=== PATIENT | female | born 1965 | race Caucasian/White ===

== ENCOUNTER 2016-11-25 21:15 | Inpatient (IN) ==
[2016-11-25] MEDS ORDERED: 0.9 % Sodium Chloride 500 ML IVC ONE (21:35)
[2016-11-25] MEDS ORDERED: 0.9 % Sodium Chloride 1,000 ML IVC ONE (21:36)
--- NOTE | 2016-11-25 21:40 | Emergency Department Note ---
Disposition Clinical Impression: Numbness and tingling of right upper extremity, Hyperglycemia, Hyponatremia, Hypermagnesemia UTI (urinary tract infection) Qualifiers: Urinary tract infection type: site unspecified Hematuria presence: without hematuria Qualified Code(s): N39.0 - Urinary tract infection, site not specified Disposition: Admitted As Inpatient Condition: Fair Referrals: Zeynep Gonsales MD [Primary Care Provider] - Forms: ED Satisfaction Letter Time of Disposition: 23:40 Neuro HPI - General Chief Complaint: ED Neuro Symptoms/Deficit Stated Complaint: tingling R side face/arm Time Seen by Provider: 11/25/16 21:36 Source: patient Limitations: no limitations Nursing Notes Reviewed: Yes Vital Signs Reviewed: Yes - History of Present Illness HPI Narrative: 51-year-old female with poorly controlled diabetes, insulin-dependent but not taking insulin for the last several weeks due to not able to afford her medications, also hypertension hyperlipidemia, presents with acute onset of right facial and right upper extremity numbness and tingling. Patient stated that she started having these paresthesias at approximately 6:00 in the evening or 1800. She woke up with symptoms, once a bed at 1600. She no history of CVA. No history of [place], she denies any active chest pain. Denies fever chills cough congestion. Symptom Onset Unknown: Yes Location: right face, right arm History of same: Yes Severity: mild Symptoms Improving: Yes Improves with: time Worsens with: none On Anticoagulants: No Associated symptoms: Denies: confusion, chest pain, cough, diaphoresis, headaches, nausea/vomiting, shortness of breath, syncope - Related Data Home Medications: Home Medications Medication Instructions Recorded Confirmed Bethanechol Chloride [Urecholine] 10 mg PO TID 05/10/15 05/10/15 Cyanocobalamin/Folic Acid [B-12 1 each SL DAILY 05/10/15 05/10/15 1,000 Mcg Sub Tablet] Docusate Sodium [Dok] 100 mg PO BID 05/10/15 05/10/15 Duloxetine HCl [Cymbalta] 60 mg PO DAILY 05/10/15 05/10/15 Fluocinonide/Emollient Base 15 gm TP DAILY 05/10/15 05/10/15 [Fluocinonide-E 0.05% Cream] Gabapentin [Gralise] 1,200 mg PO HS 05/10/15 05/10/15 Gabapentin [Neurontin] 600 mg PO BID 05/10/15 05/10/15 Insulin ASPART [Novolog Flexpen] 15 unit SQ TID 05/10/15 05/10/15 Insulin Glargine,Hum.rec.anlog 76 unit SQ DAILY 05/10/15 05/10/15 [Lantus Solostar] Ketoconazole 2% CRM [Nizoral Cream] 1 appl TP DAILY 05/10/15 05/10/15 Losartan Potassium [Cozaar] 50 mg PO DAILY 05/10/15 05/10/15 Lovastatin 10 mg PO DAILY 05/10/15 05/10/15 Metformin HCl [Metformin HCl ER] 2,000 mg PO DAILY 05/10/15 05/10/15 Ondansetron HCl [Zofran] 4 mg PO TID PRN 05/10/15 05/10/15 Oxycodone HCl/Acetaminophen 1 tab PO Q6H PRN 05/10/15 05/10/15 [Percocet 10-325 mg Tablet] Pantoprazole Sodium [Protonix] 40 mg PO DAILY 05/10/15 05/10/15 Ranitidine HCl [Zantac] 150 mg PO BID 05/10/15 05/10/15 Tizanidine HCl [Zanaflex] 4 mg PO TID PRN 05/10/15 05/10/15 hydroCHLOROthiazide 12.5 mg PO DAILY 05/10/15 05/10/15 [Hydrochlorothiazide] Allergies/Adverse Reactions: Allergies Allergy/AdvReac Type Severity Reaction Status Date / Time hydrocodone [From Vicodin] AdvReac Nausea Verified 11/25/16 21:22 All systems ED: reviewed and negative except as stated. Review of Systems: As Per HPI Constitutional: Denies: fever, chills, weakness Eyes: Denies: eye pain ENT ED: Denies: ear pain, congestion Cardiovascular: Denies: chest pain Respiratory: Denies: cough, dyspnea Gastrointestinal: Denies: abdominal pain, nausea Genitourinary: Reports: as per HPI, frequency. Denies: urgency Musculoskeletal: Denies: back pain, neck pain Integumentary: Denies: rash Neurological: Reports: as per HPI, numbness, paresthesias. Denies: headache, abnormal gait Psychiatric: Denies: anxiety Past Medical History - Past Medical History Attestation: Yes The following information was validated with the patient. Source: patient Medical history: Reports: diabetes, GERD, hyperlipidemia, hypertension, kidney stones, other Psychiatric history: Reports: depression - Social History Smoking Status: Never smoker Smokeless Tobacco Status: No Alcohol use: Reports: none Drug use: Reports: none Physical Exam - General Limitations: no limitations General appearance: alert, in no apparent distress - Head Head exam: atraumatic - Eye Eye exam: Present: normal appearance, PERRL - ENT ENT exam: normal exam, normal oropharynx - Neck Neck exam: Present: normal inspection, full ROM - Chest Chest inspection: Present: normal inspection, symmetric chest wall rise - Respiratory Respiratory exam: Present: normal lung sounds bilaterally. Absent: respiratory distress - Cardiovascular Cardiovascular exam: Present: regular rate, normal rhythm - Abdominal Exam Abdominal exam: Present: soft, Non-Tender - Extremities Exam Extremities exam: Present: normal inspection, full ROM - Expanded Lower Extremity Exam Knee exam: Present: tenderness (bilateral no erythema). Absent: swelling, erythema - Neurological Exam Neurological exam: Present: alert, oriented X3, CN II-XII intact, normal gait - Expanded Neurological Exam Patient oriented to: Present: person, place, time Speech: Present: fluid speech Cranial nerves: facial sensation (V): Abnormal Right Cerebellar function: finger to nose: Normal, heel to [place]: Normal Cerebellar function: normal gait Motor strength - LUE: 5/5 Motor strength - RUE: 5/5 Motor strength - LLE: 5/5 Motor strength - RLE: 5/5 Sensory exam upper extremity: light touch: Abnormal Right Coma Scale Eye Opening: Spontaneous Coma Scale Motor Response: Obeys Commands Coma Scale Verbal Response: Oriented Coma Scale Total: 15 Course Course Narrative: 51-year-old female with acute onset right facial and upper summary numbness, given that she has diabetes and concern for anginal versus neurologic effects. Patient also has poorly controlled hyperglycemia which may be precipitating her symptoms, given that the last normal was at 1600, and she woke up with symptoms , she is out of the window for TPA and her symptoms are very small with an NIH of 1 she only has sensory deficits, and she also some numbness on the left montgomery which may be neuropathy but she states that this is new. Her symptoms do not fit a typical stroke pattern, we will get a stat CT scan but no stroke alert at this time, also checking beta hydroxybutyric acid, labs including urine blood cultures lactate and IV fluids - Reevaluation(s) Reevaluation #1: CT scan negative except for sphenoid sinusitis, patient has evidence of UTI, VBG shows no acidemia, but I did speak with the hospitalist they will admit the patient they recommended a insulin drip for the patient given uncontrolled hyperglycemia concern for DKA and neurologic symptoms. Plan admit the patient to the [facility] in stable condition. Time: 23:40 Vital Signs Temperature 97.9 F 11/25/16 21:18 Pulse Rate 99 11/25/16 21:18 Respiratory Rate 20 11/25/16 21:18 Blood Pressure 160/93 11/25/16 21:18 O2 Sat by Pulse Oximetry 98 11/25/16 21:18 Temperature 97.9 F 11/25/16 21:18 Pulse Rate 99 11/25/16 21:18 Respiratory Rate 20 11/25/16 21:18 Blood Pressure 160/93 11/25/16 21:18 O2 Sat by Pulse Oximetry 98 11/25/16 21:18 Oxygen Delivery Oxygen Delivery Room Air Neuro Symptoms/Deficit - Differential Diagnosis Likely: transient cerebral ischemia, convulsions - Medical Records Medical records reviewed: Yes I reviewed the patient's medical records. - Lab Data Lab results reviewed: Yes I reviewed the patient's lab results. Result diagrams: 11/25/16 22:28 11/25/16 22:57 Lab Results 11/25/16 11/25/16 11/25/16 Range/Units 21:23 21:24 22:14 WBC (4.3-11.1) K/mcL RBC (3.82-4.97) M/mcL Hgb (11.5-15.4) g/dL Hct (35.3-44.9) % MCV (83.0-100.0) fL MCH (28.0-33.3) pg MCHC (31.6-35.5) g/dL RDW (11.5-14.5) % Plt Count (140-400) K/mcL MPV (9.4-12.4) fL Immature Gran % (0-4) % Seg Neutrophils % % Lymphocytes % % Monocytes % % Eosinophils % % Basophils % % Neutrophils # (1.6-8.9) K/mcL Lymphocytes # (0.6-4.6) K/mcL Monocytes # (0.0-1.3) K/mcL Eosinophils # (0.0-0.6) K/mcL Basophils # (0.0-0.2) K/mcL PT (9.4-12.1) Seconds INR APTT (26.0-36.0) Seconds VBG pH (7.32-7.42) pH Units VBG pCO2 (41-51) mmHg VBG pO2 (25-50) mmHg VBG HCO3 (21-27) mEq/L Sodium (136-145) mEq/L Potassium (3.5-4.5) mEq/L Chloride (98-109) mEq/L Carbon Dioxide (19-29) mEq/L BUN (7-20) mg/dL Creatinine (0.57-1.11) mg/dL Est GFR ( Amer) (> 60) Est GFR (Non-Af Amer) (> 60) BUN/Creatinine Ratio (6-26) Glucose (70-99) mg/dL POC Glucose 461 H* 426 H* (58-89) Calculated Osmolality (280-300) Lactic Acid (0.5-2.2) mmol/L Calcium (8.6-10.8) mg/dL Phosphorus (2.3-4.7) mg/dL Magnesium (1.6-2.6) mg/dL Troponin I (0-0.03) ng/mL Beta-Hydroxybutyric Acd (0.02-0.27) mmol/L TSH (0.350-4.840) mcIU/mL Urine Color Yellow (Yellow) Urine Clarity Clear (Clear) Urine pH 5.5 (5.0-8.0) pH Units Ur Specific [place] > 1.030 H (1.010-1.025) Urine Protein 30 H (Neg-Trace) mg/dL Urine Glucose (UA) >=1000 H (Normal) mg/dL Urine Ketones 15 H (Negative) mg/dL Urine Blood Large H (Negative) Urine Nitrite Positive A (Negative) Urine Bilirubin Negative (Negative) Urine Urobilinogen Normal (Normal) mg/dL Ur Leukocyte Esterase Negative (Negative) Urine Microscopic RBC 50-100 H (0-3) per hpf Urine Microscopic WBC 5-15 H (0-3) per hpf Ur Squamous Epith Cells Moderate H (None-Few) per lpf Urine Bacteria Many H (None-Few) per hpf Hyaline Casts None Seen (None-Few) per lpf Ur Culture Indicated? YES A (NO) Specimen Rejected 11/25/16 11/25/16 11/25/16 Range/Units 22:28 22:28 22:28 WBC 7.4 (4.3-11.1) K/mcL RBC 4.30 (3.82-4.97) M/mcL Hgb 13.8 (11.5-15.4) g/dL Hct 38.1 (35.3-44.9) % MCV 88.6 (83.0-100.0) fL MCH 32.1 (28.0-33.3) pg MCHC 36.2 H (31.6-35.5) g/dL RDW 13.5 (11.5-14.5) % Plt Count 275 (140-400) K/mcL MPV 11.3 (9.4-12.4) fL Immature Gran % 0.3 (0-4) % Seg Neutrophils % 63.6 % Lymphocytes % 26.8 % Monocytes % 6.8 % Eosinophils % 1.6 % Basophils % 0.9 % Neutrophils # 4.7 (1.6-8.9) K/mcL Lymphocytes # 2.0 (0.6-4.6) K/mcL Monocytes # 0.5 (0.0-1.3) K/mcL Eosinophils # 0.1 (0.0-0.6) K/mcL Basophils # 0.1 (0.0-0.2) K/mcL PT 11.1 (9.4-12.1) Seconds INR 1.0 APTT 31.7 (26.0-36.0) Seconds VBG pH (7.32-7.42) pH Units VBG pCO2 (41-51) mmHg VBG pO2 (25-50) mmHg VBG HCO3 (21-27) mEq/L Sodium (136-145) mEq/L Potassium (3.5-4.5) mEq/L Chloride (98-109) mEq/L Carbon Dioxide (19-29) mEq/L BUN (7-20) mg/dL Creatinine (0.57-1.11) mg/dL Est GFR ( Amer) (> 60) Est GFR (Non-Af Amer) (> 60) BUN/Creatinine Ratio (6-26) Glucose (70-99) mg/dL POC Glucose (58-89) Calculated Osmolality (280-300) Lactic Acid (0.5-2.2) mmol/L Calcium (8.6-10.8) mg/dL Phosphorus (2.3-4.7) mg/dL Magnesium (1.6-2.6) mg/dL Troponin I 0.01 (0-0.03) ng/mL Beta-Hydroxybutyric Acd (0.02-0.27) mmol/L TSH (0.350-4.840) mcIU/mL Urine Color (Yellow) Urine Clarity (Clear) Urine pH (5.0-8.0) pH Units Ur Specific [place] (1.010-1.025) Urine Protein (Neg-Trace) mg/dL Urine Glucose (UA) (Normal) mg/dL Urine Ketones (Negative) mg/dL Urine Blood (Negative) Urine Nitrite (Negative) Urine Bilirubin (Negative) Urine Urobilinogen (Normal) mg/dL Ur Leukocyte Esterase (Negative) Urine Microscopic RBC (0-3) per hpf Urine Microscopic WBC (0-3) per hpf Ur Squamous Epith Cells (None-Few) per lpf Urine Bacteria (None-Few) per hpf Hyaline Casts (None-Few) per lpf Ur Culture Indicated? (NO) Specimen Rejected 11/25/16 11/25/16 11/25/16 Range/Units 22:28 22:28 22:35 WBC (4.3-11.1) K/mcL RBC (3.82-4.97) M/mcL Hgb (11.5-15.4) g/dL Hct (35.3-44.9) % MCV (83.0-100.0) fL MCH (28.0-33.3) pg MCHC (31.6-35.5) g/dL RDW (11.5-14.5) % Plt Count (140-400) K/mcL MPV (9.4-12.4) fL Immature Gran % (0-4) % Seg Neutrophils % % Lymphocytes % % Monocytes % % Eosinophils % % Basophils % % Neutrophils # (1.6-8.9) K/mcL Lymphocytes # (0.6-4.6) K/mcL Monocytes # (0.0-1.3) K/mcL Eosinophils # (0.0-0.6) K/mcL Basophils # (0.0-0.2) K/mcL PT (9.4-12.1) Seconds INR APTT (26.0-36.0) Seconds VBG pH 7.33 (7.32-7.42) pH Units VBG pCO2 53 H (41-51) mmHg VBG pO2 46 (25-50) mmHg VBG HCO3 28 H (21-27) mEq/L Sodium (136-145) mEq/L Potassium (3.5-4.5) mEq/L Chloride (98-109) mEq/L Carbon Dioxide (19-29) mEq/L BUN (7-20) mg/dL Creatinine (0.57-1.11) mg/dL Est GFR ( Amer) (> 60) Est GFR (Non-Af Amer) (> 60) BUN/Creatinine Ratio (6-26) Glucose (70-99) mg/dL POC Glucose (58-89) Calculated Osmolality (280-300) Lactic Acid (0.5-2.2) mmol/L Calcium (8.6-10.8) mg/dL Phosphorus (2.3-4.7) mg/dL Magnesium (1.6-2.6) mg/dL Troponin I (0-0.03) ng/mL Beta-Hydroxybutyric Acd 0.74 H (0.02-0.27) mmol/L TSH 1.797 (0.350-4.840) mcIU/mL Urine Color (Yellow) Urine Clarity (Clear) Urine pH (5.0-8.0) pH Units Ur Specific [place] (1.010-1.025) Urine Protein (Neg-Trace) mg/dL Urine Glucose (UA) (Normal) mg/dL Urine Ketones (Negative) mg/dL Urine Blood (Negative) Urine Nitrite (Negative) Urine Bilirubin (Negative) Urine Urobilinogen (Normal) mg/dL Ur Leukocyte Esterase (Negative) Urine Microscopic RBC (0-3) per hpf Urine Microscopic WBC (0-3) per hpf Ur Squamous Epith Cells (None-Few) per lpf Urine Bacteria (None-Few) per hpf Hyaline Casts (None-Few) per lpf Ur Culture Indicated? (NO) Specimen Rejected Hemolyzed 11/25/16 11/25/16 Range/Units 22:57 23:48 WBC (4.3-11.1) K/mcL RBC (3.82-4.97) M/mcL Hgb (11.5-15.4) g/dL Hct (35.3-44.9) % MCV (83.0-100.0) fL MCH (28.0-33.3) pg MCHC (31.6-35.5) g/dL RDW (11.5-14.5) % Plt Count (140-400) K/mcL MPV (9.4-12.4) fL Immature Gran % (0-4) % Seg Neutrophils % % Lymphocytes % % Monocytes % % Eosinophils % % Basophils % % Neutrophils # (1.6-8.9) K/mcL Lymphocytes # (0.6-4.6) K/mcL Monocytes # (0.0-1.3) K/mcL Eosinophils # (0.0-0.6) K/mcL Basophils # (0.0-0.2) K/mcL PT (9.4-12.1) Seconds INR APTT (26.0-36.0) Seconds VBG pH (7.32-7.42) pH Units VBG pCO2 (41-51) mmHg VBG pO2 (25-50) mmHg VBG HCO3 (21-27) mEq/L Sodium 129 L (136-145) mEq/L Potassium 4.4 (3.5-4.5) mEq/L Chloride 95 L (98-109) mEq/L Carbon Dioxide 22 (19-29) mEq/L BUN 9 (7-20) mg/dL Creatinine 1.03 (0.57-1.11) mg/dL Est GFR ( Amer) > 60 (> 60) Est GFR (Non-Af Amer) 56 L (> 60) BUN/Creatinine Ratio 9 (6-26) Glucose 372 H (70-99) mg/dL POC Glucose (58-89) Calculated Osmolality 282 (280-300) Lactic Acid 2.2 (0.5-2.2) mmol/L Calcium 9.4 (8.6-10.8) mg/dL Phosphorus 2.3 (2.3-4.7) mg/dL Magnesium 2.8 H (1.6-2.6) mg/dL Troponin I (0-0.03) ng/mL Beta-Hydroxybutyric Acd (0.02-0.27) mmol/L TSH (0.350-4.840) mcIU/mL Urine Color (Yellow) Urine Clarity (Clear) Urine pH (5.0-8.0) pH Units Ur Specific [place] (1.010-1.025) Urine Protein (Neg-Trace) mg/dL Urine Glucose (UA) (Normal) mg/dL Urine Ketones (Negative) mg/dL Urine Blood (Negative) Urine Nitrite (Negative) Urine Bilirubin (Negative) Urine Urobilinogen (Normal) mg/dL Ur Leukocyte Esterase (Negative) Urine Microscopic RBC (0-3) per hpf Urine Microscopic WBC (0-3) per hpf Ur Squamous Epith Cells (None-Few) per lpf Urine Bacteria (None-Few) per hpf Hyaline Casts (None-Few) per lpf Ur Culture Indicated? (NO) Specimen Rejected - Radiology Data Radiology results reviewed: Yes I reviewed the patient's radiology results. Chest X-Ray 11/25/16 21:35 IMPRESSION: Negative portable study. D/ / Mitzi Ayala Cha, MD / Mitzi Ayala Cha, MD Interpreting Provider: Mitzi Ayala Cha, MD Head CT 11/25/16 21:35 IMPRESSION: No acute intracranial abnormality. Dependent fluid or mucosal thickening within the right sphenoid sinus. D/ / Mitzi Ayala Cha, MD / Mitzi Ayala Cha, MD Interpreting Provider: Mitzi Ayala Cha, MD - EKG Data EKG attestation: Yes I reviewed and interpreted this EKG. EKG shows normal: sinus rhythm Rate: normal (86 bpm MD 140 curettes 73 QTC 348 subtle flattening in V4 V3 V5 from previous EKG and April 2015 ) Interpretation: nonspecific ST-T wave changes NIH Stroke Scale - Level of Consciousness LOC: Alert - LOC Questions LOC Questions: Answers both correctly - LOC Commands LOC Commands: Performs both correctly - Best Gaze Best Gaze: Normal - Visual Visual: No visual loss - Facial Palsy Facial Palsy: Normal - Motor Arms Motor Arm-Left: No drift for 10 seconds Motor Arm-Right: No drift for 10 seconds - Motor Legs Motor Leg-Left: No drift for 5 seconds Motor Leg-Right: No drift for 5 seconds - Limb Ataxia Limb Ataxia: Absent of affected limb too weak to perform exam - Sensory Sensory: Mild to moderate loss, "not as sharp" - Best Language Best Language: No aphasia - Dysarthria Dysarthria: Normal - Extinction and Inattention Extinction and Inattention: Normal - NIHSS Total Score NIHSS Total Score: 1 TPA Checklist - Source Information Source: Family - Eligibilty for IV tPA 2. Clinical diagnosis of ischemic stroke causing deficit: No - LKW: 3-4.5 hrs Add. Warnings/Precautions Patient/family understanding: The patient/family members have been counseled and understood the risk, benefit , and alternatives of treatment. Attestation Statement - Attestation Attestation: I, Juan Son MD, personally evaluated this patient and discussed their management with the resident physician. I reviewed the resident's note and agree with the documented findings, medical decision making, and plan of care. 51-year-old female presents to the emergency department with a complaint that she awoke from a nap about 7 PM this evening with a numbness and tingling sensation in the right side of the face and in the entire right arm from the shoulder down to the fingertips. She also had the numbness and tingling in the left lower leg. She complains of pain in both knees. Last known well was 4 PM when she went to sleep. No prior history of strokes or neurological problems. No headache. No neck pain or stiff neck. No difficulty with speech or swallowing or balance. No weakness. No blurred vision or double vision. Patient is diabetic but ran out of her insulin. She states her insurance changed and new insurance will not take effect until December. She did buy one vial of insulin but it was $275 and she could not afford to buy any more. On examination patient is a well-developed obese female female in no acute distress. She is alert and oriented 3. There is no cyanosis or diaphoresis. Neck is supple and nontender with full range of motion. No JVD. No carotid bruits. Chest is nontender to palpation. Breath sounds are clear and equal bilaterally. Heart regular rate and rhythm. Abdomen soft and nontender with normal bowel sounds. Subjective decreased sensation to light touch in the entire right upper extremity. Numbness and tingling has totally resolved in the face and left leg. No focal motor deficits. Labs reviewed. Glucose 426. Positive ketones. PH normal. She does have a UTI. EKG shows a normal sinus rhythm, heart rate 96, nonspecific T-wave changes. Chest x-ray negative. Head CT shows no acute intracranial abnormality. The hospitalist, Dr. Valadez, was consulted and accepted admission of the patient.
[2016-11-25 22:19] LABS: Bilirubin,Urine Negative (Negative); Blood,Urine Large (Negative); Clarity,Urine Clear (Clear); Color,Urine Yellow (Yellow); Glucose,Urine (UA) >=1000 mg/dL (Normal); Ketones,Urine 15 mg/dL (Negative); Leukocyte Esterase,Urine Negative (Negative); Nitrite,Urine Positive (Negative); PH,Urine 5.5 pH Units (5.0-8.0); Protein,Urine 30 mg/dL (Neg-Trace); Specific Gravity,Urine > 1.030 (1.010-1.025); Urobilinogen,Urine Normal (Normal)
[2016-11-25 22:21] LABS: Bacteria,Urine Many per hpf (None-Few); Hyaline Casts,Urine None Seen per lpf (None-Few); RBC,Urine 50-100 per hpf (0-3); Squamous Epithelial Cell,Urine Moderate per lpf (None-Few)
[2016-11-25 22:32] LABS: Basophils # 0.1 K/mcL (0.0-0.2); Basophils % 0.9 %; Eosinophils # 0.1 K/mcL (0.0-0.6); Eosinophils % 1.6 %; Hematocrit 38.1 % (35.3-44.9); Hemoglobin 13.8 g/dL (11.5-15.4); Immature Granulocytes % 0.3 % (0-4); Lymphocytes % 26.8 %; Mean Corpuscular HGB Conc 36.2 g/dL (31.6-35.5); Mean Corpuscular Hemoglobin 32.1 pg (28.0-33.3); Mean Corpuscular Volume 88.6 fL (83.0-100.0); Mean Platelet Volume 11.3 fL (9.4-12.4); Monocytes # 0.5 K/mcL (0.0-1.3); Monocytes % 6.8 %; Neutrophils # 4.7 K/mcL (1.6-8.9); Platelet Count 275 K/mcL (140-400); Red Cell Distribution Width 13.5 % (11.5-14.5); Segmented Neutrophils % 63.6 %
[2016-11-25 22:36] LABS: Beta-Hydroxybutyric Acid 0.74 mmol/L (0.02-0.27); Prothrombin Time 11.1 Seconds (9.4-12.1)
[2016-11-25 22:39] LABS: Activated Partial Thrombo Time 31.7 Seconds (26.0-36.0)
[2016-11-25 22:40] LABS: VBG HCO3 28 mEq/L (21-27); VBG PCO2 53 mmHg (41-51); VBG PH 7.33 pH Units (7.32-7.42); VBG PO2 46 mmHg (25-50)
[2016-11-25 23:09] LABS: Thyroid Stimulating Hormone 1.797 mcIU/mL (0.350-4.840)
[2016-11-25] MEDS ORDERED: Insulin Human Regular 100 UNIT in 0.9 % Sodium Chloride 100 ML IVC SCH (23:15)
[2016-11-25 23:17] LABS: BUN/Creatinine Ratio 9 (6-26); Blood Urea Nitrogen 9 mg/dL (7-20); Calcium 9.4 mg/dL (8.6-10.8); Carbon Dioxide 22 mEq/L (19-29); Chloride 95 mEq/L (98-109); Magnesium 2.8 mg/dL (1.6-2.6); Osmolality,Calculated 282 (280-300); Phosphorous 2.3 mg/dL (2.3-4.7); Sodium 129 mEq/L (136-145); eGFR For African Americans > 60 (> 60); eGFR For Non-African Americans 56 (> 60)
[2016-11-25 23:18] LABS: Glucose 372 mg/dL (70-99)
[2016-11-25 23:20] LABS: Potassium 4.4 mEq/L (3.5-4.5)
[2016-11-25] MEDS ORDERED: Aspirin 325 MG TABLET PO ONE (23:22)
[2016-11-25] MEDS ORDERED: 0.9 % Sodium Chloride 1,000 ML IVC SCH (23:45)
[2016-11-26] MEDS ORDERED: Naloxone 0.4 MG/ML INJ IVP PRN (01:53)
[2016-11-26] MEDS ORDERED: Ondansetron 4 MG/2 ML VIAL IVP PRN (01:53)
[2016-11-26] MEDS ORDERED: *HR* Morphine 2 MG/ML SYRINGE IVP PRN (01:53)
[2016-11-26] MEDS ORDERED: *HR* Dextrose 50 % in Water (Syg) 50 ML SYRINGE IVP PRN (02:54)
[2016-11-26] MEDS ORDERED: Dextrose Gel 15 GM PO PRN ×2 (02:54)
[2016-11-26] MEDS ORDERED: D5% in Water 1,000 ML IVC PRN (02:54)
[2016-11-26 03:29] LABS: Basophils # 0.1 K/mcL (0.0-0.2); Basophils % 0.9 %; Eosinophils # 0.2 K/mcL (0.0-0.6); Eosinophils % 2.5 %; Immature Granulocytes % 0.1 % (0-4); Lymphocytes # 2.2 K/mcL (0.6-4.6); Lymphocytes % 32.1 %; Mean Corpuscular HGB Conc 35.6 g/dL (31.6-35.5); Mean Corpuscular Hemoglobin 31.7 pg (28.0-33.3); Mean Platelet Volume 10.8 fL (9.4-12.4); Monocytes # 0.7 K/mcL (0.0-1.3); Monocytes % 9.7 %; Neutrophils # 3.8 K/mcL (1.6-8.9); Platelet Count 234 K/mcL (140-400); Red Blood Count 3.82 M/mcL (3.82-4.97); Red Cell Distribution Width 13.2 % (11.5-14.5); Segmented Neutrophils % 54.7 %
[2016-11-26 03:32] LABS: Hemoglobin 12.1 g/dL (11.5-15.4)
--- NOTE | 2016-11-26 03:37 | Internal Med History&Physical ---
Date of Encounter: 11/26/16 Time of Encounter: 02:15 Assessment and Plan (1) Numbness and tingling of right upper extremity Current visit: Yes Status: Acute Acute right facial and right upper extremity numbness and tingling - rule out CVA Continue Aspirin, Lipitor, heparin for DVT prophylaxis NIHSS - 0 CT head without contrast - no acute intracranial abnormality EKG - sinus rhythm with no acute ST-T changes Chest x-ray - negative Troponin - negative, cycle troponin MRI brain - pending Echocardiogram - pending Carotid Doppler - pending Cardiac telemetry, labs in a.m., monitor closely (2) Diabetes mellitus Current visit: Yes Status: Chronic Type 2 diabetes mellitus, insulin-dependent, hyperglycemia - with ketouria and ketonemia without acidosis, without coma Patient initially on IV insulin, continue high-dose insulin sliding scale coverage, glucose checks Anion gap - 12 Repeat labs, monitor closely Qualifiers: Diabetes mellitus type: type 2 Diabetes mellitus complication status: with unspecified complications Diabetes mellitus skilled nursing insulin use: with skilled nursing use Qualified Code(s): E11.8 - Type 2 diabetes mellitus with unspecified complications; Z79.4 - terminologist (current) use of insulin; Z79.4 - terminologist ( current) use of insulin; Z79.4 - [facility] (current) use of insulin; Z79.4 - [facility] (current) use of insulin (3) UTI (urinary tract infection) Current visit: Yes Status: Acute UTI, acute cystitis, present on admission - likely secondary to gram-negative bacilli Continue empiric IV Rocephin Cultures - pending Qualifiers: Urinary tract infection type: site unspecified Hematuria presence: without hematuria Qualified Code(s): N39.0 - Urinary tract infection, site not specified (4) Hypertension Current visit: Yes Status: Chronic Essential hypertension, controlled, monitor Continue home dose of Losartan/HCTZ Qualifiers: Hypertension type: essential hypertension Qualified Code(s): I10 - Essential (primary) hypertension (5) Hyperlipidemia Current visit: Yes Status: Chronic Continue Lipitor Qualifiers: Hyperlipidemia type: unspecified Qualified Code(s): E78.5 - Hyperlipidemia , unspecified (6) DVT prophylaxis Current visit: Yes Status: Acute Continue heparin subcutaneous Internal Medicine - H&P: HPI Chief complaint: Right facial numbness and right upper extremity numbness Admitted From: Emergency Dept Plans for Post Hospital Care: Home History of present illness: Ms. Herrera is a 51 year old female with past medical history of diabetes, hyperlipidemia, hypertension, GERD and depression. Patient presents to ED with complaints of right facial numbness and right upper extremity numbness. Examined in the room. Patient is awake and alert. Not in any distress. Able to provide all history. No family members at bedside. Patient states around 4 PM this evening she developed right facial numbness and tingling. She also developed right arm numbness and tingling. Symptoms are persistent. Facial numbness seems to have improved slightly, but right arm tingling and numbness is persistent. Patient also states her left lower leg felt numb but that is not concerning her as much as the right arm and right side of face. Patient states that her family told her that her right side of face was drooping earlier. No aggravating or alleviating factors. She did not have any slurred speech. She denies any focal weakness. She denies loss of consciousness. Patient denies chest pain or shortness of breath. Denies headache or dizziness or vomiting. No abdominal pain or diarrhea. No other associated symptoms. No other acute complaints. Initial workup in the ED is significant for hypoglycemia. Positive ketones. Patient also has nitrite positive on UA with ketones in urine. CT head noncontrast is negative. Chest x-ray is negative. EKG shows sinus rhythm with no acute ST-T changes. Patient is being admitted for right facial and right upper extremity numbness and tingling, to rule out CVA. Patient needs IV antibiotics for UTI. She will need insulin for hyperglycemia. Patient has been explained about her condition and plan of care in detail. She understood and agreed. No unanswered questions. CODE STATUS full code. Past Med Surg Social Fam HX - Past Medical History Medical history: diabetes, GERD, hyperlipidemia, hypertension, kidney stones, other Psychiatric history: depression - Past Surgical History Surgical History: appendectomy, cholecystectomy - Social History Smoking Status: Never smoker Smokeless Tobacco Status: No Alcohol use: none Drug use: none - Family History Mother Hx Family Cancer: Yes Internal Medicine - H&P: Meds Bethanechol Chloride [Urecholine] 10 mg PO TID 05/10/15 [History] Cyanocobalamin/Folic Acid [B-12 1,000 Mcg Sub Tablet] 1 each SL DAILY 05/10/15 [ History] Docusate Sodium [Dok] 100 mg PO BID 05/10/15 [History] Duloxetine HCl [Cymbalta] 60 mg PO DAILY 05/10/15 [History] Gabapentin [Neurontin] 600 mg PO BID 05/10/15 [History] Insulin ASPART [Novolog Flexpen] 15 unit SQ TID 05/10/15 [History] Insulin Glargine,Hum.rec.anlog [Lantus Solostar] 80 unit SQ DAILY 05/10/15 [ History] Losartan Potassium [Cozaar] 50 mg PO DAILY 05/10/15 [History] Lovastatin 10 mg PO DAILY 05/10/15 [History] Metformin HCl [Metformin HCl ER] 2,000 mg PO DAILY 05/10/15 [History] Ondansetron HCl [Zofran] 4 mg PO TID PRN 05/10/15 [History] Oxycodone HCl/Acetaminophen [Percocet 10-325 mg Tablet] 1 tab PO Q6H PRN [History] Pantoprazole Sodium [Protonix] 40 mg PO DAILY 05/10/15 [History] Ranitidine HCl [Zantac] 150 mg PO BID 05/10/15 [History] Tizanidine HCl [Zanaflex] 4 mg PO TID PRN 05/10/15 [History] hydroCHLOROthiazide [Hydrochlorothiazide] 12.5 mg PO DAILY 05/10/15 [History] 3 Allergy/AdvReac Type Severity Reaction Status Date / Time hydrocodone [From Vicodin] AdvReac Nausea Verified 11/25/16 21:22 All Systems PM: A 10-system review of systems was performed and is negative for pertinent findings except as documented above in the HPI. - Constitutional Constitutional: fatigue, no fever(s), no weakness - EENT Eyes: no blurry vision - Cardiovascular Cardiovascular ROS IM: no chest pain, no claudication, no diaphoresis, no dyspnea, no dyspnea on exertion, no edema, no lightheadedness, no orthopnea, no syncope - Respiratory Respiratory: no cough, no dyspnea, no hemoptysis, no dyspnea on exertion, no wheezing, no chest congestion - Gastrointestinal Gastrointestinal: nausea, no abdominal pain, no belching, no cramping, no diarrhea, no hematemesis, no hematochezia, no vomiting - Genitourinary Genitourinary: no dysuria - Neurological Neurological ROS: numbness, tingling, no abnormal movements, no abnormal speech , no confusion, no convulsions, no focal weakness, no frequent falls, no headache(s), no loss of vision, no weakness - Psychiatric Psychiatric: no anxiety, no confusion - Constitutional Vitals: Temp Pulse Resp BP Pulse Ox 98.7 F 98 18 149/86 96 11/26/16 02:06 11/26/16 02:06 11/26/16 02:06 11/26/16 02:06 11/26/16 02:06 General appearance: Present: cooperative, A&O X 3, pleasant, no acute distress, obese, answers questions appropriately - Head Head exam: Present: atraumatic - Eye Eye exam: Present: EOMI, PERRL - ENT ENT exam: Present: mucous membranes moist - Respiratory Respiratory exam: Present: CTAB. Absent: rales, rhonchi, wheezes, tachypnea - Cardiovascular Cardiovascular exam: Present: RRR, +S1, +S2 - GI/Abdominal GI/Abdominal exam: Present: soft. Absent: distended, firm, guarding, tenderness - Extremities Exam Extremities exam: Present: radial pulses palpable and symmetrical. Absent: calf tenderness, cyanotic, pedal edema - Neurological Exam Neurological exam: Present: alert, CN II-XII intact, oriented X3, no focal deficits. Absent: facial droop, speech deficit Additional comments: No obvious focal neurological deficit. Patient does seem to have mild sensory deficit on the right side of face and right arm Internal Med - H&P Results - Labs CBC & Chem 7: 11/26/16 02:56 11/25/16 22:57
[2016-11-26 04:20] LABS: eGFR For African Americans > 60 (> 60); eGFR For Non-African Americans > 60 (> 60)
[2016-11-26 04:21] LABS: BUN/Creatinine Ratio 12 (6-26)
[2016-11-26 04:24] LABS: Blood Urea Nitrogen 10 mg/dL (7-20); Carbon Dioxide 23 mEq/L (19-29); Chloride 106 mEq/L (98-109); Glucose 192 mg/dL (70-99); Magnesium 1.6 mg/dL (1.6-2.6); Osmolality,Calculated 298 (280-300); Potassium 3.8 mEq/L (3.5-4.5); Sodium 142 mEq/L (136-145)
[2016-11-26 04:25] LABS: Calcium 8.4 mg/dL (8.6-10.8)
[2016-11-26 05:37] LABS: Beta-Hydroxybutyric Acid 0.34 mmol/L (0.02-0.27)
[2016-11-26] MEDS ORDERED: Insulin LISPRO 300 UNITS/3 ML VIAL SQ SCH ×2 (06:00→21:00)
[2016-11-26 06:16] LABS: VBG HCO3 25 mEq/L (21-27); VBG PCO2 47 mmHg (41-51); VBG PH 7.34 pH Units (7.32-7.42); VBG PO2 188 mmHg (25-50)
[2016-11-26] MEDS: hydroCHLOROthiazide 25 MG TABLET PO SCH (09:17)
[2016-11-26] MEDS: Famotidine 20 MG TABLET PO SCH ×2 (09:18→21:15)
[2016-11-26] MEDS: Vitamin B Complex/Vit C/Vit E 1 EACH TABLET PO SCH (09:18)
[2016-11-26] MEDS: Aspirin 81 MG TAB.CHEW PO SCH (09:18)
[2016-11-26] MEDS: Insulin DETEMIR 100 UNIT/ML X5UNITS SQ SCH ×2 (09:19→21:17)
[2016-11-26] MEDS: *HR* Heparin 5,000 UNIT/ML VIAL SQ SCH ×2 (09:19→17:50)
[2016-11-26] MEDS: BETHANECHOL CHLORIDE 10 MG PO SCH ×3 (09:31→21:16)
--- NOTE | 2016-11-26 10:50 | Internal Med Progress Note ---
<Lucio Cortez - Last Filed: 11/26/16 17:10> Date of Encounter: 11/26/16 Time of Encounter: 09:15 - Assessment and plan (1) Numbness and tingling of right upper extremity Current Visit: Yes Status: Acute Assessment and plan: Acute right facial and right upper extremity numbness and tingling, partially resolved Patient is no longer experiencing numbness tingling in her face, and her arm feels less weak although there is still some tingling MRI brain negative for any acute intracranial events or ischemia MRA Pending Echocardiogram pending, carotid Doppler pending Continue aspirin, statin, heparin for DVT prophylaxis (2) UTI (urinary tract infection) Current Visit: Yes Status: Acute Assessment and plan: Urinary tract infection on admission, likely gram-negative organism Current cultures pending, however patient has history of Escherichia coli and Klebsiella UTI Ceftriaxone was started We will continue to monitor Qualifiers: Urinary tract infection type: site unspecified Hematuria presence: without hematuria Qualified Code(s): N39.0 - Urinary tract infection, site not specified (3) Diabetes mellitus Current Visit: Yes Status: Chronic Assessment and plan: Type 2 diabetes mellitus, insulin-dependent, hyperglycemic due to poor control with ketonuria and ketonemia without acidosis Blood glucose 192 fasting, 387 random, Anion gap 13 Beta hydroxybutyric acid 0.34 Currently getting 40U Detemir BID, High Dose Sliding scale for meals. Will start 8U prandial Continue to monitor blood glucose and mental status closely Qualifiers: Diabetes mellitus type: type 2 Diabetes mellitus complication status: with hyperglycemia Diabetes mellitus nursing home insulin use: with truck terminal manager use Qualified Code(s): E11.65 - Type 2 diabetes mellitus with hyperglycemia; Z79.4 - extermination supervisor (current) use of insulin; Z79.4 - extermination supervisor (current) use of insulin ; Z79.4 - [facility] (current) use of insulin; Z79.4 - extermination supervisor (current) use of insulin (4) Hyponatremia Current Visit: Yes Status: Resolved Assessment and plan: Resolved with IV Fluids (5) Hypertension Current Visit: Yes Status: Chronic Assessment and plan: Currently hypertensive on home medications, on IV Fluids Continue to monitor, consider increasing dose of one medication Qualifiers: Hypertension type: essential hypertension Qualified Code(s): I10 - Essential (primary) hypertension (6) DVT prophylaxis Current Visit: Yes Status: Acute Assessment and plan: SQ heparin - Subjective Interval history: The patient is lying comfortably in bed at time of examination. She says that overnight her right arm became less numb that she does still have some tingling in her fingertips. She also says that she feels like her sizing end bander strength has been decreased, as she has been unable to pinch a zipper to zip her pants. She otherwise says she's doing okay, although she admits to being very thirsty. - Constitutional Vitals: Temp Pulse Resp BP Pulse Ox 98.1 F 88 17 153/88 97 11/26/16 07:00 11/26/16 07:00 11/26/16 07:00 11/26/16 07:00 11/26/16 07:00 General appearance: Present: cooperative, A&O X 3, pleasant, no acute distress, obese, answers questions appropriately Internal Medicine: Result - Labs CBC & Chem 7: 11/26/16 02:56 11/26/16 02:56 Labs: Short CBC 11/26/16 Range/Units 02:56 WBC 6.9 (4.3-11.1) K/mcL Hgb 12.1 D (11.5-15.4) g/dL Hct 34.0 L (35.3-44.9) % Plt Count 234 (140-400) K/mcL Neutrophils # 3.8 (1.6-8.9) K/mcL BMP 11/26/16 02:56 Sodium 142 D Potassium 3.8 Chloride 106 Carbon Dioxide 23 BUN 10 Creatinine 0.83 Glucose 192 H Calcium 8.4 L Cardiac Enzymes 11/26/16 11/26/16 Range/Units 02:56 08:53 Troponin I 0.01 0.01 (0-0.03) ng/mL - ABG Interpretation ABG results: PT/INR, D-dimer PT 11.1 Seconds (9.4-12.1) 11/25/16 22:28 Consult Discharge Plan - Plan Referrals: Zeynep Gonsales MD [Primary Care Provider] - <Rakesh Ricks - Last Filed: 11/26/16 20:48> Date of Encounter: 11/26/16 - Constitutional Vitals: Temp Pulse Resp BP Pulse Ox 98.1 F 88 17 153/88 97 11/26/16 07:00 11/26/16 07:00 11/26/16 07:00 11/26/16 07:00 11/26/16 07:00 Internal Medicine: Result - Labs CBC & Chem 7: 11/26/16 02:56 11/26/16 02:56 Labs: Short CBC 11/26/16 Range/Units 02:56 WBC 6.9 (4.3-11.1) K/mcL Hgb 12.1 D (11.5-15.4) g/dL Hct 34.0 L (35.3-44.9) % Plt Count 234 (140-400) K/mcL Neutrophils # 3.8 (1.6-8.9) K/mcL BMP 11/26/16 02:56 Sodium 142 D Potassium 3.8 Chloride 106 Carbon Dioxide 23 BUN 10 Creatinine 0.83 Glucose 192 H Calcium 8.4 L Cardiac Enzymes 11/26/16 11/26/16 11/26/16 Range/Units 02:56 08:53 16:07 Troponin I 0.01 0.01 0.00 (0-0.03) ng/mL - ABG Interpretation ABG results: PT/INR, D-dimer PT 11.1 Seconds (9.4-12.1) 11/25/16 22:28 - Impressions Impressions Brain MRI 11/26/16 01:57 IMPRESSION: No acute infarct or acute intracranial process identified. D/ / Raul Srinivasan MD / Raul Srinivasan MD Interpreting Provider: Raul Srinivasan MD Head MRA 11/26/16 16:53 IMPRESSION: Unremarkable MRA of the head. D/ / Zeus Hernandez MD / Zeus Hernandez MD Interpreting Provider: Zeus Hernandez MD - Attending Attestation I examined this patient and my medical decision-making was reviewed with the Resident Physician. I agree with the documented findings, disposition and treatment plan as described except to the extent set forth below. 51/female Admitted with right-sided numbness/facial droop Possible RIND Plan: Workup for TIA/CVA If workup is positive then please consult neurology
[2016-11-26] MEDS ORDERED: diazePAM 10 MG/2 ML SYRINGE IVP ONE ×2 (11:18→16:54)
[2016-11-26] MEDS: Insulin LISPRO 300 UNITS/3 ML VIAL SQ SCH ×3 (12:34→17:51)
[2016-11-26] MEDS: 0.9 % Sodium Chloride 1,000 ML IVC SCH (17:50)
--- NOTE | 2016-11-26 18:10 | Electrocardiograph Report ---
[address] [place], [place] [address] Test Date: 2016-11-25 Pat Name: Kate Herrera Department: 103 Room: 2NE30 Gender: F Floater Operator: : [id number] Requested By: Junior Hinton Order Number: [id number] Reading MD: Benja Gil MD Measurements Intervals [place] Rate: 96 P: 46 TN: 140 QRS: 55 QRSD: 73 T: 30 QT: 294 QTc: 348 Interpretive Statements SINUS RHYTHM LOW QRS VOLTAGE IN PRECORDIAL LEADS BASELINE ARTIFACT Electronically Signed On 11-26-2016 18:08:47 EDT by Benja Gil MD
[2016-11-26] MEDS: Acetaminophen 325 MG TABLET PO PRN (19:15)
[2016-11-27] MEDS: *HR* Heparin 5,000 UNIT/ML VIAL SQ SCH ×2 (00:46→08:51)
--- NOTE | 2016-11-27 05:37 | Internal Med Progress Note ---
Date of Encounter: 11/27/16 - Assessment and plan (1) Numbness and tingling of right upper extremity Current Visit: Yes Status: Acute (2) UTI (urinary tract infection) Current Visit: Yes Status: Acute Qualifiers: Urinary tract infection type: site unspecified Hematuria presence: without hematuria Qualified Code(s): N39.0 - Urinary tract infection, site not specified (3) Diabetes mellitus Current Visit: Yes Status: Chronic Qualifiers: Diabetes mellitus type: type 2 Diabetes mellitus complication status: with hyperglycemia Diabetes mellitus assisted insulin use: with bed bug exterminator use Qualified Code(s): E11.65 - Type 2 diabetes mellitus with hyperglycemia; Z79.4 - moth exterminator (current) use of insulin; Z79.4 - moth exterminator (current) use of insulin ; Z79.4 - [facility] living (current) use of insulin; Z79.4 - senior living (current) use of insulin (4) Hyponatremia Current Visit: Yes Status: Resolved (5) Hypertension Current Visit: Yes Status: Chronic Qualifiers: Hypertension type: essential hypertension Qualified Code(s): I10 - Essential (primary) hypertension (6) DVT prophylaxis Current Visit: Yes Status: Acute - Subjective Interval history: The patient is lying comfortably in bed at time of examination. She says that overnight her right arm became less numb that she does still have some tingling in her fingertips. She also says that she feels like her interlocking installer strength has been decreased, as she has been unable to pinch a zipper to zip her pants. She otherwise says she's doing okay, although she admits to being very thirsty. - Constitutional Vitals: Temp Pulse Resp BP Pulse Ox 98.0 F 87 18 142/84 94 11/27/16 04:26 11/27/16 04:26 11/27/16 04:26 11/27/16 04:26 11/27/16 04:26 General appearance: Present: cooperative, A&O X 3, pleasant, no acute distress, obese, answers questions appropriately Internal Medicine: Result - Labs CBC & Chem 7: 11/26/16 02:56 11/26/16 02:56 Labs: Cardiac Enzymes 11/26/16 11/26/16 Range/Units 08:53 16:07 Troponin I 0.01 0.00 (0-0.03) ng/mL - ABG Interpretation ABG results: PT/INR, D-dimer PT 11.1 Seconds (9.4-12.1) 11/25/16 22:28 - Impressions Impressions Brain MRI 11/26/16 01:57 IMPRESSION: No acute infarct or acute intracranial process identified. D/ / Raul Srinivasan MD / Raul Srinivasan MD Interpreting Provider: Raul Srinivasan MD Head MRA 11/26/16 16:53 IMPRESSION: Unremarkable MRA of the head. D/ / Zeus Hernandez MD / Zeus Hernandez MD Interpreting Provider: Zeus Hernandez MD Consult Discharge Plan - Plan Referrals: Zeynep Gonsales MD [Primary Care Provider] -
[2016-11-27 05:43] LABS: Basophils # 0.1 K/mcL (0.0-0.2); Eosinophils # 0.2 K/mcL (0.0-0.6); Eosinophils % 3.4 %; Hematocrit 34.9 % (35.3-44.9); Hemoglobin 12.1 g/dL (11.5-15.4); Immature Granulocytes % 0.4 % (0-4); Lymphocytes # 2.1 K/mcL (0.6-4.6); Lymphocytes % 41.9 %; Mean Corpuscular HGB Conc 34.7 g/dL (31.6-35.5); Mean Corpuscular Hemoglobin 30.9 pg (28.0-33.3); Mean Platelet Volume 11.6 fL (9.4-12.4); Monocytes # 0.4 K/mcL (0.0-1.3); Monocytes % 8.5 %; Neutrophils # 2.2 K/mcL (1.6-8.9); Platelet Count 177 K/mcL (140-400); Red Blood Count 3.92 M/mcL (3.82-4.97); Red Cell Distribution Width 13.3 % (11.5-14.5); Segmented Neutrophils % 44.8 %
[2016-11-27 06:19] LABS: BUN/Creatinine Ratio 8 (6-26); Blood Urea Nitrogen 6 mg/dL (7-20); Carbon Dioxide 31 mEq/L (19-29); Chloride 99 mEq/L (98-109); Glucose 275 mg/dL (70-99); Osmolality,Calculated 277 (280-300); Potassium 3.5 mEq/L (3.5-4.5); eGFR For African Americans > 60 (> 60); eGFR For Non-African Americans > 60 (> 60)
[2016-11-27 06:22] LABS: Calcium 9.1 mg/dL (8.6-10.8); Sodium 130 mEq/L (136-145)
[2016-11-27 06:23] LABS: Cholesterol 654 mg/dL (< 200); Triglycerides 3312 mg/dL (< 150)
[2016-11-27 06:35] LABS: LDL Cholesterol,Direct 44 mg/dL (< 100)
[2016-11-27 07:17] VITALS: BP 117/74
[2016-11-27] MEDS: BETHANECHOL CHLORIDE 10 MG PO SCH (08:34)
[2016-11-27] MEDS: Acetaminophen 325 MG TABLET PO PRN (08:50)
[2016-11-27] MEDS: Insulin DETEMIR 100 UNIT/ML X5UNITS SQ SCH ×3 (08:50→09:11)
[2016-11-27] MEDS: hydroCHLOROthiazide 25 MG TABLET PO SCH (08:51)
[2016-11-27] MEDS: Famotidine 20 MG TABLET PO SCH (08:51)
[2016-11-27] MEDS: Aspirin 81 MG TAB.CHEW PO SCH (08:51)
[2016-11-27] MEDS: Vitamin B Complex/Vit C/Vit E 1 EACH TABLET PO SCH (08:52)
[2016-11-27] MEDS: 0.9 % Sodium Chloride 1,000 ML IVC SCH ×2 (08:53→09:23)
[2016-11-27] MEDS: Insulin LISPRO 300 UNITS/3 ML VIAL SQ SCH ×4 (08:53→13:08)
[2016-11-27] MEDS ORDERED: Insulin DETEMIR 100 UNIT/ML X5UNITS SQ ONE (09:13)
[2016-11-27] MEDS ORDERED: *HR* OxyCODONE/APAP 7.5/325 TABLET PO PRN (09:22)
[2016-11-27 09:24] LABS: Lipase 53 Units/L (8-78)
[2016-11-27] MEDS ORDERED: Fenofibrate 54 MG TABLET PO SCH (09:30)
--- NOTE | 2016-11-27 11:13 | Discharge Summary ---
<Lucio Cortez - Last Filed: 11/27/16 14:08> Date of Encounter: 11/27/16 Time of Encounter: 09:00 - Discharge Diagnosis (1) Numbness and tingling of right upper extremity Priority: Primary Status: Acute (2) UTI (urinary tract infection) Priority: Secondary Status: Acute Qualifiers: Urinary tract infection type: site unspecified Hematuria presence: without hematuria Qualified Code(s): N39.0 - Urinary tract infection, site not specified (3) Diabetes mellitus Priority: Secondary Status: Chronic Qualifiers: Diabetes mellitus type: type 2 Diabetes mellitus complication status: with hyperglycemia Diabetes mellitus oil heaterman insulin use: with oil heaterman use Qualified Code(s): E11.65 - Type 2 diabetes mellitus with hyperglycemia; Z79.4 - [facility] (current) use of insulin; Z79.4 - [facility] (current) use of insulin ; Z79.4 - [facility] (current) use of insulin; Z79.4 - vermin exterminator (current) use of insulin (4) Hyponatremia Priority: Secondary Status: Resolved (5) Hypertension Priority: Secondary Status: Chronic Qualifiers: Hypertension type: essential hypertension Qualified Code(s): I10 - Essential (primary) hypertension (6) Hypertriglyceridemia Priority: Secondary Status: Acute (7) DVT prophylaxis Priority: Secondary Status: Acute - Discharge Medications Prescriptions: Atorvastatin [Lipitor] 40 mg PO HS #30 tablet Fenofibrate [Tricor] 54 mg PO DAILY #30 tablet Nitrofurantoin (BID) [Macrobid] 100 mg PO BID #7 capsule Hol[place]-3 Fatty Acids [Fish Oil] 300 mg PO DAILY #30 capsule Home Medications: Bethanechol Chloride [Urecholine] 10 mg PO TID 05/10/15 [History] Cyanocobalamin/Folic Acid [B-12 1,000 Mcg Sub Tablet] 1 each SL DAILY 05/10/15 [ History] Docusate Sodium [Dok] 100 mg PO BID 05/10/15 [History] Duloxetine HCl [Cymbalta] 60 mg PO DAILY 05/10/15 [History] Gabapentin [Neurontin] 600 mg PO BID 05/10/15 [History] Insulin ASPART [Novolog Flexpen] 10 - 15 unit SQ TID PRN 05/10/15 [History] Insulin Glargine,Hum.rec.anlog [Lantus Solostar] 80 unit SQ HS 05/10/15 [History ] Losartan Potassium [Cozaar] 50 mg PO DAILY 05/10/15 [History] Metformin HCl [Metformin HCl ER] 2,000 mg PO DAILY 05/10/15 [History] Ondansetron HCl [Zofran] 4 mg PO TID PRN 05/10/15 [History] Oxycodone HCl/Acetaminophen [Percocet 10-325 mg Tablet] 1 tab PO Q6H PRN [History] Pantoprazole Sodium [Protonix] 40 mg PO DAILY 05/10/15 [History] Ranitidine HCl [Zantac] 150 mg PO BID 05/10/15 [History] Tizanidine HCl [Zanaflex] 4 mg PO TID PRN 05/10/15 [History] hydroCHLOROthiazide [Hydrochlorothiazide] 12.5 mg PO DAILY 05/10/15 [History] Insulin Glargine,Hum.rec.anlog [Lantus Solostar] 30 unit SQ QAM 11/26/16 [ History] traZODone [TraZODone] 50 - 100 mg PO HS 11/26/16 [History] Atorvastatin [Lipitor] 40 mg PO HS #30 tablet 11/27/16 [Rx] Fenofibrate [Tricor] 54 mg PO DAILY #30 tablet 11/27/16 [Rx] Nitrofurantoin (BID) [Macrobid] 100 mg PO BID #7 capsule 11/27/16 [Rx] Holton-3 Fatty Acids [Fish Oil] 300 mg PO DAILY #30 capsule 11/27/16 [Rx] Allergies/Adverse Reactions: 3 Allergy/AdvReac Type Severity Reaction Status Date / Time hydrocodone [From Vicodin] AdvReac Nausea Verified 11/25/16 21:22 Procedures/tests Complete & Pending: Procedures Performed prior 72 hours Category Date Time Status MR angio head wo con [MR] Routine MRI 11/26/16 16:53 Completed MR head/brain wo con [MR] Routine MRI 11/26/16 01:57 Completed EV carotid duplex imaging BI Routine Y 11/26/16 01:58 Completed EV echocardiogram Routine Y 11/26/16 01:57 Completed Date of admission: 11/26/16 01:53 Primary care physician: Zeynep Gonsales MD Consults: 11/26/16 02:48 Consult to Engine Room Operator [CONS] Routine Reason for SW Consult: financial concerns Discharging clinician: Lucio Cortez Anticipated date of discharge: 11/27/16 - Patient Status Disposition: Home, Self-Care Condition: Fair Functional capacity at discharge: independent ambulation Overall status at discharge: patient is progressing back to baseline - Ambulatory Orders Ambulatory Orders: Comprehensive Metabolic Panel [CHEM] Time Frame: 1 Week, Location: any Lipid [place] [CHEM] Time Frame: 1 Week, Location: Any Urine Total Protein 24 Hr [UCHEM] Time Frame: 1 Week, Location: any - Discharge Instructions Instructions: Atorvastatin (By mouth), Fenofibrate (By mouth), [id number] Ethyl Esters (By mouth), Ischemic Stroke (DC), Hyperlipidemia (DC) Follow Up With: Zeynep Gonsales MD [Primary Care Provider] - 12/04/16 3:30 pm Additional Instructions: Follow up with PCP within one week Complete 24hr urine protein prior to appointment Complete CMP prior to appointment Take Nitrofurantoin 100mg BID for 3 days Take 40mg Atorvastatin daily Take 10 Tricor 54mg daily Take fish oil daily - Diet and Activity Activity: increase activity as tolerated Diet: diabetic diet Hospital course: Ms. Herrera is a 51 year old female with past medical history of diabetes, hyperlipidemia, hypertension, GERD and depression. She presented to the ED with several hour history of perioral, right face, and right arm numbness and weakness which she noticed after waking up from a nap. She did not have any slurred speech, but family noted that she had facial droop. In the ED, the patient had a CT of the head which was negative. She was admitted for workup of TIA/Stroke, at which time she recieved an echocardiogram, carotid duplex ultrasound, and EKG that were unremarkable. Further MRA brain was also unremarkable. Labs demonstrated that the patient has severely poor control of her diabetes, severe hypertriglyceridemia, and significant proteinuria. Lipase was ordered to rule out pancreatitis, which was negative. Additionally, during this admission, the patient was found to have an E.Coli UTI, for which she was treated with ceftriaxone. The patient will be discharged on macrobid, Tricor, Atorvastatin, and Fish oil. She will also be given orders for a 24 hour urine protein study, and for a CMP to be completed prior to PCP follow up. - Time Spent with Patient Total time spent providing and/or coordinating discharge services: - Constitutional Vitals: Temp Pulse Resp BP Pulse Ox 97.9 F 82 17 117/74 97 11/27/16 07:00 11/27/16 07:00 11/27/16 07:00 11/27/16 07:00 11/27/16 07:00 General appearance: Present: cooperative, A&O X 3, pleasant, no acute distress, obese, answers questions appropriately - Head Head exam: Present: atraumatic, normocephalic - Eye Eye exam: Present: PERRL, conjuntiva pink, sclera anicteric Pupils: Present: PERRL - Neck Neck exam general surgery: Present: supple, trachea midline. Absent: lymphadenopathy - Respiratory Respiratory exam: Present: CTAB. Absent: accessory muscle use, rales, rhonchi, wheezes - Cardiovascular Cardiovascular exam: Present: RRR, +S1, +S2. Absent: diastolic murmur, gallop, rubs, systolic murmur - GI/Abdominal GI/Abdominal exam: Present: normal bowel sounds, soft, no peritoneal signs. Absent: distended, tenderness - Extremities Exam Extremities exam: Present: warm, radial pulses palpable and symmetrical. Absent : calf tenderness, cyanotic, pedal edema - Neurological Exam Neurological exam: Present: CN II-XII intact, motor sensory deficit, oriented X3 , strengths equal and symetr throughout. Absent: pronater drift, facial droop, speech deficit Additional comments: Patient complains of numbness remaining in her Right arm and fingers. Sensory testing is grossly normal. Motor strength is 5/5 b/l - Skin Skin exam: Present: dry, intact <Osiel Chand A - Last Filed: 11/27/16 18:09> Date of Encounter: 11/27/16 - Discharge Diagnosis (1) UTI (urinary tract infection) Priority: Primary Status: Acute Qualifiers: Urinary tract infection type: acute cystitis Hematuria presence: without hematuria Qualified Code(s): N30.00 - Acute cystitis without hematuria (2) Hypertriglyceridemia Status: Chronic (3) Hyponatremia Status: Resolved (4) Diabetes mellitus Status: Chronic Qualifiers: Diabetes mellitus type: type 2 Diabetes mellitus complication status: with hyperglycemia Diabetes mellitus nursing home insulin use: with oil heaterman use Qualified Code(s): E11.65 - Type 2 diabetes mellitus with hyperglycemia; Z79.4 - vermin exterminator (current) use of insulin; Z79.4 - [facility] (current) use of insulin ; Z79.4 - vermin exterminator (current) use of insulin; Z79.4 - vermin exterminator (current) use of insulin (5) Hypertension Status: Chronic Qualifiers: Hypertension type: essential hypertension Qualified Code(s): I10 - Essential (primary) hypertension Procedures/tests Complete & Pending: Procedures Performed prior 72 hours Category Date Time Status MR angio head wo con [MR] Routine MRI 11/26/16 16:53 Completed MR head/brain wo con [MR] Routine MRI 11/26/16 01:57 Completed EV carotid duplex imaging BI Routine Y 11/26/16 01:58 Completed EV echocardiogram Routine Y 11/26/16 01:57 Completed Date of admission: 11/26/16 01:53 Primary care physician: Zeynep Gonsales MD Consults: 11/26/16 02:48 Consult to Engine Room Operator [CONS] Routine Reason for SW Consult: financial concerns Hospital course: Ms. Herrera is a 51 year old female - Time Spent with Patient Total time spent providing and/or coordinating discharge services: 27min - Constitutional Vitals: Temp Pulse Resp BP Pulse Ox 97.9 F 82 17 117/74 97 11/27/16 07:00 11/27/16 07:00 11/27/16 07:00 11/27/16 07:00 11/27/16 07:00 - Attending Attestation I examined this patient and my medical decision-making was reviewed with the Resident Physician on 11/27/16. I agree with the documented findings, disposition and treatment plan as described except to the extent set forth below. Ms. Herrera has been admitted for parasthesias and UTI. She was found to have significant hypertriglyceridemia. Her symptoms have resolved. She is now afebrile with stable vitals. She will be discharged home. Exam Alert. Comfortable Heart reg No wheeze Plan D/C today Follow up as outpatient.
[2016-11-27] MEDS ORDERED: FLUARIX QUAD 2017-18 36MOS UP/PF 0.5 ML SYRINGE IM ONE (12:52)
[2016-11-27] MEDS ORDERED: Insulin DETEMIR 100 UNIT/ML X5UNITS SQ SCH (21:00)
== END 2016-11-27 13:54 | disposition home or self-care (01) | DRG 638 ==
LOC: 2NENU 21:15 → EMEROO 21:15 → SUATTDRO 11-26 01:53 → 2NENU 11-26 01:54
PROVIDERS: ADMIT Internal Medicine; ATTEND Internal Medicine

== ENCOUNTER 2017-05-20 13:18 | Observation (INO) ==
[2017-05-20 13:51] LABS: Bilirubin,Urine Negative (Negative); Blood,Urine Negative (Negative); Clarity,Urine Clear (Clear); Color,Urine Yellow (Yellow); Glucose,Urine (UA) >=1000 mg/dL (Normal); Ketones,Urine Negative (Negative); Leukocyte Esterase,Urine Negative (Negative); Nitrite,Urine Negative (Negative); Protein,Urine Negative (Neg-Trace); Specific Gravity,Urine > 1.030 (1.010-1.025); Urobilinogen,Urine Normal (Normal)
--- NOTE | 2017-05-20 14:20 | Emergency Department Note ---
Disposition Clinical Impression: Diabetes mellitus, Hyperglycemia, Cellulitis, Hypokalemia, Non compliance w medication regimen Disposition: Admitted As Inpatient Condition: Good Referrals: Zeynep Gonsales MD [Primary Care Provider] - Forms: ED Satisfaction Letter Time of Disposition: 16:35 General Adult HPI - General Chief complaint: ED Nausea/Vomiting/Diarrhea Stated complaint: "hyperglycemia, sore on groin" Time Seen by Provider: 05/20/17 14:05 Source: patient Mode of arrival: ambulatory Limitations: no limitations Nursing Notes Reviewed: Yes Vital Signs Reviewed: Yes - History of Present Illness HPI Narrative: Patient presents to the ED the chief complaint of high blood sugar and nausea and vomiting. Patient has a history of diabetes and has been out of her insulin for "a while" she states that she cannot afford it. She also reports that she was at a wedding this weekend and was 2 days ago she noticed a sore developing in her right groin, which is since grown. States there is pain and redness there. No fever or chills, headache, chest pain or shortness of breath. No associated abdominal pain, or diarrhea. No new pain or swelling in her legs, but she does have a history of sciatica. Pain Scale: 6 - Related Data Home Medications Medication Instructions Recorded Confirmed Insulin ASPART [Novolog Flexpen] 0 unit SQ TIDWM 05/10/15 05/20/17 Metformin HCl [Metformin HCl ER] 1,000 mg PO BID 05/10/15 05/20/17 Pantoprazole Sodium [Protonix] 40 mg PO DAILY 05/10/15 05/20/17 Ranitidine HCl [Zantac] 150 mg PO BID 05/10/15 05/20/17 Tizanidine HCl [Zanaflex] 4 - 8 mg PO TID PRN 05/10/15 05/20/17 Losartan [Cozaar] 25 mg PO DAILY 01/11/17 05/20/17 Lovastatin 10 mg PO HS 01/11/17 05/20/17 Ondansetron ODT [Zofran ODT] 4 mg PO TID PRN 01/11/17 05/20/17 Spironolactone [Aldactone] 25 mg PO BID 01/11/17 05/20/17 hydroCHLOROthiazide 25 mg PO DAILY 01/11/17 05/20/17 [Hydrochlorothiazide] Bethanechol Chloride [Urecholine] 10 mg PO TID 05/20/17 05/20/17 Cetirizine HCl [Zyrtec] 10 mg PO DAILY 05/20/17 05/20/17 Docusate [Colace] 100 mg PO BID PRN 05/20/17 05/20/17 Doxepin [Sinequan] 25 mg PO HS 05/20/17 05/20/17 Duloxetine HCl [Cymbalta] 120 mg PO HS 05/20/17 05/20/17 Fenofibrate [Tricor] 54 mg PO DAILY 05/20/17 05/20/17 Fluticasone Propionate Nasal 50 mcg NS DAILY PRN 05/20/17 05/20/17 [Flonase] Gabapentin [Neurontin] 600 mg PO BID 05/20/17 05/20/17 Allergies Allergy/AdvReac Type Severity Reaction Status Date / Time hydrocodone [From Vicodin] AdvReac Nausea Verified 01/11/17 12:36 Review of Systems: As reviewed in the HPI. All other systems reviewed are negative or normal. Constitutional: Reports: as per HPI Eyes: Reports: as per HPI ENT ED: Reports: as per HPI Past Medical History - Past Medical History Attestation: Yes The following information was validated with the patient. Source: patient Medical history: Reports: diabetes, GERD, hyperlipidemia, hypertension, kidney stones, other Surgical history: Reports: appendectomy, cholecystectomy, hysterectomy Psychiatric history: Reports: depression - Social History Smoking Status: Never smoker Smokeless Tobacco Status: No Alcohol use: Reports: none Drug use: Reports: none Physical Exam - General Limitations: no limitations General appearance: alert, in no apparent distress - Head Head exam: atraumatic, normocephalic, normal inspection - ENT ENT exam: normal exam, normal oropharynx, mucous membranes moist - Neck Neck exam: Present: normal inspection, full ROM, trachea midline - Chest Chest inspection: Present: normal inspection, symmetric chest wall rise - Respiratory Respiratory exam: Present: normal lung sounds bilaterally - Cardiovascular Cardiovascular exam: Present: regular rate, normal rhythm, normal heart sounds - Abdominal Exam Abdominal exam: Present: soft, Non-Tender. Absent: tenderness, distention, guarding, rebound, rigidity - Extremities Exam Extremities exam: Present: full ROM, tenderness, other (There is a 3 cm abscess in the right groin/pannus. No obvious fluctuance, no drainage him associated erythema. Patient does have deeper tenderness. No necrotic tissue) - Neurological Exam Neurological exam: Present: alert, oriented X3 - Psychiatric Psychiatric exam: Present: normal affect, normal mood - Skin Skin exam: Present: warm, dry, intact, normal color, other (Abscess to right groin) Course Course Narrative: Patient presenting to the ED with hyperglycemia, nausea, vomiting and an abscess to the right groin. Fingerstick blood sugar was almost 500. Adding on DKA labs. Also will CT pelvis to evaluate depths of abscess. - Reevaluation(s) Reevaluation #1: CT shows cellulitis, but no abscess. Mildly elevated anion gap and a very mild increase in serum ketones, but no urine ketones. I do not think she is in DKA. We will replace her potassium prior to giving her insulin IV. We will also start rehydration as well Vital Signs Temperature 98.6 F 05/20/17 13:20 Pulse Rate 94 05/20/17 13:20 Respiratory Rate 18 05/20/17 13:20 Blood Pressure 117/81 05/20/17 13:20 O2 Sat by Pulse Oximetry 96 05/20/17 13:20 Temperature 98.6 F 05/20/17 13:20 Pulse Rate 90 05/20/17 15:42 Respiratory Rate 16 05/20/17 15:42 Blood Pressure 126/70 05/20/17 15:42 O2 Sat by Pulse Oximetry 98 05/20/17 15:42 Oxygen Delivery Oxygen Delivery Room Air Medical Decision Making - Lab Data Result diagrams: 05/20/17 13:23 05/20/17 13:23 Lab Results 05/20/17 05/20/17 05/20/17 Range/Units 13:22 13:23 13:23 WBC 9.7 (4.3-11.1) K/mcL RBC 4.63 (3.82-4.97) M/mcL Hgb 14.0 (11.5-15.4) g/dL Hct 40.6 (35.3-44.9) % MCV 87.7 (83.0-100.0) fL MCH 30.2 (28.0-33.3) pg MCHC 34.5 (31.6-35.5) g/dL RDW 13.2 (11.5-14.5) % Plt Count 232 (140-400) K/mcL MPV 10.4 (9.4-12.4) fL Immature Gran % 0.4 (0-4) % Seg Neutrophils % 69.3 % Lymphocytes % 22.5 % Monocytes % 6.1 % Eosinophils % 1.1 % Basophils % 0.6 % Neutrophils # 6.7 (1.6-8.9) K/mcL Lymphocytes # 2.2 (0.6-4.6) K/mcL Monocytes # 0.6 (0.0-1.3) K/mcL Eosinophils # 0.1 (0.0-0.6) K/mcL Basophils # 0.1 (0.0-0.2) K/mcL VBG pH (7.32-7.42) pH Units VBG pCO2 (41-51) mmHg VBG pO2 (25-50) mmHg VBG HCO3 (21-27) mEq/L Sodium (136-145) mEq/L Potassium (3.5-5.1) mEq/L Chloride (98-107) mEq/L Carbon Dioxide (23-29) mEq/L BUN (6-20) mg/dL Creatinine (0.60-1.20) mg/dL Est GFR ( Amer) (> 60) Est GFR (Non-Af Amer) (> 60) BUN/Creatinine Ratio (6-26) Glucose (70-105) mg/dL POC Glucose 481 H* 470 H* (70-99) mg/dL Calculated Osmolality (280-300) Calcium (8.6-10.3) mg/dL Total Bilirubin (0.3-1.0) mg/dL Direct Bilirubin (0.0-0.2) mg/dL Indirect Bilirubin (0.0-1.2) mg/dL AST (13-39) Units/L ALT (7-52) Units/L Alkaline Phosphatase (34-104) Units/L Serum Total Protein (6.4-8.9) g/dL Albumin (3.5-5.7) g/dL Globulin (2.4-3.5) g/dL Albumin/Globulin Ratio (1.1-2.2) Lipase (11-82) Units/L Beta-Hydroxybutyric Acd (0.02-0.27) mmol/L Urine Color (Yellow) Urine Clarity (Clear) Urine pH (5.0-8.0) pH Units Ur Specific [place] (1.010-1.025) Urine Protein (Neg-Trace) mg/dL Urine Glucose (UA) (Normal) mg/dL Urine Ketones (Negative) mg/dL Urine Blood (Negative) Urine Nitrite (Negative) Urine Bilirubin (Negative) Urine Urobilinogen (Normal) mg/dL Ur Leukocyte Esterase (Negative) 05/20/17 05/20/17 05/20/17 Range/Units 13:23 13:23 13:39 WBC (4.3-11.1) K/mcL RBC (3.82-4.97) M/mcL Hgb (11.5-15.4) g/dL Hct (35.3-44.9) % MCV (83.0-100.0) fL MCH (28.0-33.3) pg MCHC (31.6-35.5) g/dL RDW (11.5-14.5) % Plt Count (140-400) K/mcL MPV (9.4-12.4) fL Immature Gran % (0-4) % Seg Neutrophils % % Lymphocytes % % Monocytes % % Eosinophils % % Basophils % % Neutrophils # (1.6-8.9) K/mcL Lymphocytes # (0.6-4.6) K/mcL Monocytes # (0.0-1.3) K/mcL Eosinophils # (0.0-0.6) K/mcL Basophils # (0.0-0.2) K/mcL VBG pH (7.32-7.42) pH Units VBG pCO2 (41-51) mmHg VBG pO2 (25-50) mmHg VBG HCO3 (21-27) mEq/L Sodium 133 L (136-145) mEq/L Potassium 3.1 L (3.5-5.1) mEq/L Chloride 90 L (98-107) mEq/L Carbon Dioxide 29 (23-29) mEq/L BUN 9 (6-20) mg/dL Creatinine 0.88 (0.60-1.20) mg/dL Est GFR ( Amer) > 60 (> 60) Est GFR (Non-Af Amer) > 60 (> 60) BUN/Creatinine Ratio 10 (6-26) Glucose 437 H (70-105) mg/dL POC Glucose (70-99) mg/dL Calculated Osmolality 293 (280-300) Calcium 10.8 H (8.6-10.3) mg/dL Total Bilirubin 0.8 (0.3-1.0) mg/dL Direct Bilirubin 0.2 (0.0-0.2) mg/dL Indirect Bilirubin 0.6 (0.0-1.2) mg/dL AST 12 L (13-39) Units/L ALT 12 (7-52) Units/L Alkaline Phosphatase 122 H (34-104) Units/L Serum Total Protein 8.7 (6.4-8.9) g/dL Albumin 4.8 (3.5-5.7) g/dL Globulin 3.9 H (2.4-3.5) g/dL Albumin/Globulin Ratio 1.2 (1.1-2.2) Lipase 24 (11-82) Units/L Beta-Hydroxybutyric Acd 0.47 H (0.02-0.27) mmol/L Urine Color Yellow (Yellow) Urine Clarity Clear (Clear) Urine pH 6.0 (5.0-8.0) pH Units Ur Specific [place] > 1.030 H (1.010-1.025) Urine Protein Negative (Neg-Trace) mg/dL Urine Glucose (UA) >=1000 H (Normal) mg/dL Urine Ketones Negative (Negative) mg/dL Urine Blood Negative (Negative) Urine Nitrite Negative (Negative) Urine Bilirubin Negative (Negative) Urine Urobilinogen Normal (Normal) mg/dL Ur Leukocyte Esterase Negative (Negative) 05/20/17 Range/Units 14:59 WBC (4.3-11.1) K/mcL RBC (3.82-4.97) M/mcL Hgb (11.5-15.4) g/dL Hct (35.3-44.9) % MCV (83.0-100.0) fL MCH (28.0-33.3) pg MCHC (31.6-35.5) g/dL RDW (11.5-14.5) % Plt Count (140-400) K/mcL MPV (9.4-12.4) fL Immature Gran % (0-4) % Seg Neutrophils % % Lymphocytes % % Monocytes % % Eosinophils % % Basophils % % Neutrophils # (1.6-8.9) K/mcL Lymphocytes # (0.6-4.6) K/mcL Monocytes # (0.0-1.3) K/mcL Eosinophils # (0.0-0.6) K/mcL Basophils # (0.0-0.2) K/mcL VBG pH 7.35 (7.32-7.42) pH Units VBG pCO2 61 H (41-51) mmHg VBG pO2 40 (25-50) mmHg VBG HCO3 34 H (21-27) mEq/L Sodium (136-145) mEq/L Potassium (3.5-5.1) mEq/L Chloride (98-107) mEq/L Carbon Dioxide (23-29) mEq/L BUN (6-20) mg/dL Creatinine (0.60-1.20) mg/dL Est GFR ( Amer) (> 60) Est GFR (Non-Af Amer) (> 60) BUN/Creatinine Ratio (6-26) Glucose (70-105) mg/dL POC Glucose (70-99) mg/dL Calculated Osmolality (280-300) Calcium (8.6-10.3) mg/dL Total Bilirubin (0.3-1.0) mg/dL Direct Bilirubin (0.0-0.2) mg/dL Indirect Bilirubin (0.0-1.2) mg/dL AST (13-39) Units/L ALT (7-52) Units/L Alkaline Phosphatase (34-104) Units/L Serum Total Protein (6.4-8.9) g/dL Albumin (3.5-5.7) g/dL Globulin (2.4-3.5) g/dL Albumin/Globulin Ratio (1.1-2.2) Lipase (11-82) Units/L Beta-Hydroxybutyric Acd (0.02-0.27) mmol/L Urine Color (Yellow) Urine Clarity (Clear) Urine pH (5.0-8.0) pH Units Ur Specific [place] (1.010-1.025) Urine Protein (Neg-Trace) mg/dL Urine Glucose (UA) (Normal) mg/dL Urine Ketones (Negative) mg/dL Urine Blood (Negative) Urine Nitrite (Negative) Urine Bilirubin (Negative) Urine Urobilinogen (Normal) mg/dL Ur Leukocyte Esterase (Negative)
[2017-05-20 14:38] LABS: Basophils # 0.1 K/mcL (0.0-0.2); Basophils % 0.6 %; Eosinophils # 0.1 K/mcL (0.0-0.6); Eosinophils % 1.1 %; Hematocrit 40.6 % (35.3-44.9); Immature Granulocytes % 0.4 % (0-4); Lymphocytes # 2.2 K/mcL (0.6-4.6); Lymphocytes % 22.5 %; Mean Corpuscular HGB Conc 34.5 g/dL (31.6-35.5); Mean Corpuscular Hemoglobin 30.2 pg (28.0-33.3); Mean Corpuscular Volume 87.7 fL (83.0-100.0); Mean Platelet Volume 10.4 fL (9.4-12.4); Monocytes # 0.6 K/mcL (0.0-1.3); Monocytes % 6.1 %; Neutrophils # 6.7 K/mcL (1.6-8.9); Platelet Count 232 K/mcL (140-400); Red Blood Count 4.63 M/mcL (3.82-4.97); Red Cell Distribution Width 13.2 % (11.5-14.5); Segmented Neutrophils % 69.3 %
[2017-05-20 15:02] LABS: VBG HCO3 34 mEq/L (21-27); VBG PCO2 61 mmHg (41-51); VBG PH 7.35 pH Units (7.32-7.42); VBG PO2 40 mmHg (25-50)
[2017-05-20 15:02] LABS: Alanine Aminotransferase 12 Units/L (7-52); Albumin 4.8 g/dL (3.5-5.7); Albumin/Globulin Ratio 1.2 (1.1-2.2); Alkaline Phosphatase 122 Units/L (34-104); Aspartate Amino Transferase 12 Units/L (13-39); BUN/Creatinine Ratio 10 (6-26); Bilirubin,Direct 0.2 mg/dL (0.0-0.2); Bilirubin,Indirect 0.6 mg/dL (0.0-1.2); Bilirubin,Total 0.8 mg/dL (0.3-1.0); Blood Urea Nitrogen 9 mg/dL (6-20); Calcium 10.8 mg/dL (8.6-10.3); Carbon Dioxide 29 mEq/L (23-29); Chloride 90 mEq/L (98-107); Globulin 3.9 g/dL (2.4-3.5); Glucose 437 mg/dL (70-105); Lipase 24 Units/L (11-82); Osmolality,Calculated 293 (280-300); Potassium 3.1 mEq/L (3.5-5.1); Sodium 133 mEq/L (136-145); Total Protein 8.7 g/dL (6.4-8.9); eGFR For African Americans > 60 (> 60); eGFR For Non-African Americans > 60 (> 60)
[2017-05-20] MEDS ORDERED: Orphenadrine 60 MG/2 ML VIAL IV ONE (15:45)
[2017-05-20] MEDS ORDERED: Clindamycin 600 MG/50 ML 600 MG/50 ML IV.SOLN IVPB STA (16:03)
[2017-05-20] MEDS ORDERED: 0.9 % Sodium Chloride 1,000 ML IVC ONE (16:31)
[2017-05-20] MEDS ORDERED: Insulin Human Regular 10 UNIT in 0.9 % Sodium Chloride 10 ML IV ONE (16:31)
--- NOTE | 2017-05-20 17:04 | Internal Med History&Physical ---
<Ricky Agrawal - Last Filed: 05/20/17 17:31> Date of Encounter: 05/20/17 Time of Encounter: 17:02 Internal Medicine - H&P: HPI Admitted From: Home Plans for Post Hospital Care: Home History of present illness: Patient presents to the ED the chief complaint of high blood sugar and nausea and vomiting. Patient has a history of diabetes and has been out of her insulin for "a while" she states that she cannot afford it. She also reports that she was at a wedding this weekend and was 2 days ago she noticed a sore developing in her right groin, which is since grown. States there is pain and redness there. No fever or chills, headache, chest pain or shortness of breath. No associated abdominal pain, or diarrhea. No new pain or swelling in her legs, but she does have a history of sciatica. Past Med Surg Social Fam HX - Past Medical History Medical history: diabetes, GERD, hyperlipidemia, hypertension, kidney stones, other Psychiatric history: depression - Past Surgical History Surgical History: appendectomy, cholecystectomy, hysterectomy - Social History Smoking Status: Never smoker Smokeless Tobacco Status: No Alcohol use: none Drug use: none - Family History Mother Hx Family Cancer: Yes Internal Medicine - H&P: Meds Insulin ASPART [Novolog Flexpen] 0 unit SQ TIDWM 05/10/15 [History] Metformin HCl [Metformin HCl ER] 1,000 mg PO BID 05/10/15 [History] Pantoprazole Sodium [Protonix] 40 mg PO DAILY 05/10/15 [History] Ranitidine HCl [Zantac] 150 mg PO BID 05/10/15 [History] Tizanidine HCl [Zanaflex] 4 - 8 mg PO TID PRN 05/10/15 [History] Losartan [Cozaar] 25 mg PO DAILY 01/11/17 [History] Lovastatin 10 mg PO HS 01/11/17 [History] Ondansetron ODT [Zofran ODT] 4 mg PO TID PRN 01/11/17 [History] Spironolactone [Aldactone] 25 mg PO BID 01/11/17 [History] hydroCHLOROthiazide [Hydrochlorothiazide] 25 mg PO DAILY 01/11/17 [History] Bethanechol Chloride [Urecholine] 10 mg PO TID 05/20/17 [History] Cetirizine HCl [Zyrtec] 10 mg PO DAILY 05/20/17 [History] Docusate [Colace] 100 mg PO BID PRN 05/20/17 [History] Doxepin [Sinequan] 25 mg PO HS 05/20/17 [History] Duloxetine HCl [Cymbalta] 120 mg PO HS 05/20/17 [History] Fenofibrate [Tricor] 54 mg PO DAILY 05/20/17 [History] Fluticasone Propionate Nasal [Flonase] 50 mcg NS DAILY PRN 05/20/17 [History] Gabapentin [Neurontin] 600 mg PO BID 05/20/17 [History] 3 Allergy/AdvReac Type Severity Reaction Status Date / Time hydrocodone [From Vicodin] AdvReac Nausea Verified 01/11/17 12:36 All Systems PM: A 10-system review of systems was performed and is negative for pertinent findings except as documented above in the HPI. - Constitutional Constitutional: no chills, no fever(s), no night sweats - EENT Eyes: no change in vision, no discharge, no pain, no photophobia Ears: no ear discharge, no ear pain, no tinnitus Nose, mouth and throat: no dysphagia, no nasal discharge, no neck pain, no sore throat - Cardiovascular Cardiovascular ROS IM: no chest pain, no diaphoresis, no dyspnea, no lightheadedness, no palpitations, no syncope - Respiratory Respiratory: no cough, no dyspnea, no wheezing, no excessive phlegm production - Gastrointestinal Gastrointestinal: no abdominal pain, no diarrhea, no hematemesis, no hematochezia, no melena, no nausea, no vomiting - Genitourinary Genitourinary: no change in urinary stream, no dysuria, no flank pain, no hematuria - Musculoskeletal Musculoskeletal ROS IM: no numbness, no tingling - Integumentary Integumentary IM: no rash, no unusual bruising - Neurological Neurological ROS: no confusion, no convulsions, no focal weakness, no numbness, no tingling, no tremor(s) - Hematologic/Lymphatic Hematologic/Lymphatic: no easy bruising - Constitutional Vitals: Temp Pulse Resp BP Pulse Ox 98.6 F 90 16 126/70 98 05/20/17 13:20 05/20/17 15:42 05/20/17 15:42 05/20/17 15:42 05/20/17 15:42 - Head Head exam: Present: atraumatic, normocephalic - Eye Eye exam: Present: PERRL, conjuntiva pink, sclera anicteric Pupils: Present: PERRL - Neck Neck exam general surgery: Present: supple, trachea midline. Absent: lymphadenopathy - Respiratory Respiratory exam: Present: CTAB. Absent: accessory muscle use, rales, rhonchi, wheezes - Cardiovascular Cardiovascular exam: Present: RRR, +S1, +S2. Absent: diastolic murmur, gallop, rubs, systolic murmur - GI/Abdominal GI/Abdominal exam: Present: normal bowel sounds, soft, no peritoneal signs. Absent: distended, tenderness - Extremities Exam Extremities exam: Present: warm, radial pulses palpable and symmetrical. Absent : calf tenderness, cyanotic, pedal edema - Neurological Exam Neurological exam: Present: CN II-XII intact, oriented X3, no focal deficits. Absent: pronater drift, facial droop, speech deficit - Skin Skin exam: Present: dry, intact Internal Med - H&P Results - Labs CBC & Chem 7: 05/20/17 13:23 05/20/17 13:23 Labs: Short CBC 05/20/17 Range/Units 13:23 WBC 9.7 (4.3-11.1) K/mcL Hgb 14.0 (11.5-15.4) g/dL Hct 40.6 (35.3-44.9) % Plt Count 232 (140-400) K/mcL Neutrophils # 6.7 (1.6-8.9) K/mcL BMP 05/20/17 13:23 Sodium 133 L Potassium 3.1 L Chloride 90 L Carbon Dioxide 29 BUN 9 Creatinine 0.88 Glucose 437 H Calcium 10.8 H Liver Function 05/20/17 Range/Units 13:23 Total Bilirubin 0.8 (0.3-1.0) mg/dL Direct Bilirubin 0.2 (0.0-0.2) mg/dL AST 12 L (13-39) Units/L ALT 12 (7-52) Units/L Alkaline Phosphatase 122 H (34-104) Units/L Albumin 4.8 (3.5-5.7) g/dL Urine 05/20/17 Range/Units 13:39 Urine Color Yellow (Yellow) Urine Clarity Clear (Clear) Urine pH 6.0 (5.0-8.0) pH Units Ur Specific [place] > 1.030 H (1.010-1.025) Urine Protein Negative (Neg-Trace) mg/dL Urine Glucose (UA) >=1000 H (Normal) mg/dL - ABG Interpretation ABG results: 05/20/17 14:59 VBG pH 7.35 VBG pCO2 61 H VBG pO2 40 VBG HCO3 34 H - Impressions ITS Impressions Abdomen/Pelvis CT 05/20/17 14:17 IMPRESSION: 1. Focal inflammatory changes in the right inguinal region consistent with a cellulitis. No focal abscess. Small rounded density, possibly focal fluid just below the skin surface. 2. Suspected postoperative subcutaneous scarring related to transverse incision performed for recent hysterectomy within the low pelvis . No focal fluid collection seen. 3. Otherwise unremarkable CT of the abdomen and pelvis. Previous cholecystectomy and hysterectomy. D/ / 05/20/2017 16:37:59 Jose Neal MD / [facility] Interpreting Provider: Jose Neal MD - Assessment and plan (1) Hypertriglyceridemia Current Visit: Yes Status: Acute Assessment and plan: - Hx of DM and has no insulin at home for months due to financial issues. - Hyperglycemia without DKA, start on Levimer based on weight. - start insulin SS. - continue IVF. (2) Cellulitis Current Visit: Yes Status: Acute Assessment and plan: - right groin cellulitis without abscess. - continue Clindymycin. Qualifiers: Site of cellulitis: unspecified site Qualified Code(s): L03.90 - Cellulitis , unspecified (3) Hypokalemia Current Visit: Yes Status: Acute Assessment and plan: - replaced at ED, will check K+ in am. (4) Non compliance w medication regimen Current Visit: Yes Status: Acute (5) Diabetes mellitus Current Visit: No Status: Chronic Assessment and plan: - as above. Qualifiers: Diabetes mellitus type: type 2 Diabetes mellitus longterm insulin use: without terminal system operator use Diabetes mellitus complication status: without complication Qualified Code(s): E11.9 - Type 2 diabetes mellitus without complications - Time Spent With Patient Total time spent is greater than 50% in coordination of care (as documented) at patient's floor/unit and/or counseling patient: Greater than 35 minutes <Davey Worley - Last Filed: 05/20/17 18:37> Date of Encounter: 05/20/17 Internal Medicine - H&P: HPI History of present illness: Ms. Herrera is a 52 year old female All Systems PM: A 10-system review of systems was performed and is negative for pertinent findings except as documented above in the HPI. - Constitutional Vitals: Temp Pulse Resp BP Pulse Ox 98.6 F 90 16 126/70 98 05/20/17 13:20 05/20/17 15:42 05/20/17 15:42 05/20/17 15:42 05/20/17 15:42 Internal Med - H&P Results - Labs CBC & Chem 7: 05/20/17 13:23 05/20/17 13:23 - Attending Attestation I examined this patient and my medical decision-making was reviewed with the Resident Physician. I agree with the documented findings, disposition and treatment plan as described except to the extent set forth below. - Time Spent With Patient Total time spent is greater than 50% in coordination of care (as documented) at patient's floor/unit and/or counseling patient:
[2017-05-20] MEDS ORDERED: tiZANidine 4 MG TABLET PO PRN (17:09)
[2017-05-20] MEDS ORDERED: Ondansetron ODT 4 MG TAB.RAPDIS PO PRN (17:09)
[2017-05-20] MEDS ORDERED: Fluticasone Propionate Nasal 50 MCG/SPRAY BOTTLE NS PRN (17:09)
[2017-05-20] MEDS ORDERED: *HR* Dextrose 50 % in Water (Syg) 50 ML SYRINGE IVP PRN (17:19)
[2017-05-20] MEDS ORDERED: Dextrose Gel 15 GM/37.5 ML TUBE PO PRN ×2 (17:19)
[2017-05-20] MEDS ORDERED: D5% in Water 1,000 ML IVC PRN (17:19)
[2017-05-20] MEDS ORDERED: Naloxone 0.4 MG/ML INJ IVP PRN (17:20)
--- NOTE | 2017-05-20 17:49 | Emergency Department Note ---
Disposition Clinical Impression: Hyperglycemia, Hypokalemia, Non compliance w medication regimen Diabetes mellitus Qualifiers: Diabetes mellitus type: type 2 Diabetes mellitus terminal superintendent insulin use: without terminal superintendent use Diabetes mellitus complication status: without complication Qualified Code(s): E11.9 - Type 2 diabetes mellitus without complications Cellulitis Qualifiers: Site of cellulitis: unspecified site Qualified Code(s): L03.90 - Cellulitis, unspecified Disposition: Admitted As Inpatient Condition: Good Referrals: Zeynep Gonsales MD [Primary Care Provider] - Forms: ED Satisfaction Letter General Adult HPI - General Chief complaint: ED Nausea/Vomiting/Diarrhea Stated complaint: "hyperglycemia, sore on groin" Time Seen by Provider: 05/20/17 14:05 Source: patient Mode of arrival: ambulatory Limitations: no limitations Nursing Notes Reviewed: Yes Vital Signs Reviewed: Yes - History of Present Illness Pain Scale: 6 - Related Data Home Medications Medication Instructions Recorded Confirmed Insulin ASPART [Novolog Flexpen] 0 unit SQ TIDWM 05/10/15 05/20/17 Metformin HCl [Metformin HCl ER] 1,000 mg PO BID 05/10/15 05/20/17 Pantoprazole Sodium [Protonix] 40 mg PO DAILY 05/10/15 05/20/17 Ranitidine HCl [Zantac] 150 mg PO BID 05/10/15 05/20/17 Tizanidine HCl [Zanaflex] 4 - 8 mg PO TID PRN 05/10/15 05/20/17 Losartan [Cozaar] 25 mg PO DAILY 01/11/17 05/20/17 Lovastatin 10 mg PO HS 01/11/17 05/20/17 Ondansetron ODT [Zofran ODT] 4 mg PO TID PRN 01/11/17 05/20/17 Spironolactone [Aldactone] 25 mg PO BID 01/11/17 05/20/17 hydroCHLOROthiazide 25 mg PO DAILY 01/11/17 05/20/17 [Hydrochlorothiazide] Bethanechol Chloride [Urecholine] 10 mg PO TID 05/20/17 05/20/17 Cetirizine HCl [Zyrtec] 10 mg PO DAILY 05/20/17 05/20/17 Docusate [Colace] 100 mg PO BID PRN 05/20/17 05/20/17 Doxepin [Sinequan] 25 mg PO HS 05/20/17 05/20/17 Duloxetine HCl [Cymbalta] 120 mg PO HS 05/20/17 05/20/17 Fenofibrate [Tricor] 54 mg PO DAILY 05/20/17 05/20/17 Fluticasone Propionate Nasal 50 mcg NS DAILY PRN 05/20/17 05/20/17 [Flonase] Gabapentin [Neurontin] 600 mg PO BID 05/20/17 05/20/17 Allergies Allergy/AdvReac Type Severity Reaction Status Date / Time hydrocodone [From Vicodin] AdvReac Nausea Verified 01/11/17 12:36 Constitutional: Reports: as per HPI Eyes: Reports: as per HPI ENT ED: Reports: as per HPI Past Medical History - Past Medical History Medical history: Reports: diabetes, GERD, hyperlipidemia, hypertension, kidney stones, other Surgical history: Reports: appendectomy, cholecystectomy, hysterectomy Psychiatric history: Reports: depression - Social History Smoking Status: Never smoker Smokeless Tobacco Status: No Alcohol use: Reports: none Drug use: Reports: none Physical Exam - General Limitations: no limitations General appearance: alert, in no apparent distress Course Vital Signs Temperature 98.6 F 05/20/17 13:20 Pulse Rate 94 05/20/17 13:20 Respiratory Rate 18 05/20/17 13:20 Blood Pressure 117/81 05/20/17 13:20 O2 Sat by Pulse Oximetry 96 05/20/17 13:20 Temperature 98.6 F 05/20/17 13:20 Pulse Rate 90 05/20/17 15:42 Respiratory Rate 16 05/20/17 15:42 Blood Pressure 126/70 05/20/17 15:42 O2 Sat by Pulse Oximetry 98 05/20/17 15:42 Oxygen Delivery Oxygen Delivery Room Air Medical Decision Making - Lab Data Result diagrams: 05/20/17 13:23 05/20/17 13:23 Lab Results 05/20/17 05/20/17 05/20/17 Range/Units 13:22 13:23 13:23 WBC 9.7 (4.3-11.1) K/mcL RBC 4.63 (3.82-4.97) M/mcL Hgb 14.0 (11.5-15.4) g/dL Hct 40.6 (35.3-44.9) % MCV 87.7 (83.0-100.0) fL MCH 30.2 (28.0-33.3) pg MCHC 34.5 (31.6-35.5) g/dL RDW 13.2 (11.5-14.5) % Plt Count 232 (140-400) K/mcL MPV 10.4 (9.4-12.4) fL Immature Gran % 0.4 (0-4) % Seg Neutrophils % 69.3 % Lymphocytes % 22.5 % Monocytes % 6.1 % Eosinophils % 1.1 % Basophils % 0.6 % Neutrophils # 6.7 (1.6-8.9) K/mcL Lymphocytes # 2.2 (0.6-4.6) K/mcL Monocytes # 0.6 (0.0-1.3) K/mcL Eosinophils # 0.1 (0.0-0.6) K/mcL Basophils # 0.1 (0.0-0.2) K/mcL VBG pH (7.32-7.42) pH Units VBG pCO2 (41-51) mmHg VBG pO2 (25-50) mmHg VBG HCO3 (21-27) mEq/L Sodium (136-145) mEq/L Potassium (3.5-5.1) mEq/L Chloride (98-107) mEq/L Carbon Dioxide (23-29) mEq/L BUN (6-20) mg/dL Creatinine (0.60-1.20) mg/dL Est GFR ( Amer) (> 60) Est GFR (Non-Af Amer) (> 60) BUN/Creatinine Ratio (6-26) Glucose (70-105) mg/dL POC Glucose 481 H* 470 H* (70-99) mg/dL Calculated Osmolality (280-300) Calcium (8.6-10.3) mg/dL Total Bilirubin (0.3-1.0) mg/dL Direct Bilirubin (0.0-0.2) mg/dL Indirect Bilirubin (0.0-1.2) mg/dL AST (13-39) Units/L ALT (7-52) Units/L Alkaline Phosphatase (34-104) Units/L Serum Total Protein (6.4-8.9) g/dL Albumin (3.5-5.7) g/dL Globulin (2.4-3.5) g/dL Albumin/Globulin Ratio (1.1-2.2) Lipase (11-82) Units/L Beta-Hydroxybutyric Acd (0.02-0.27) mmol/L Urine Color (Yellow) Urine Clarity (Clear) Urine pH (5.0-8.0) pH Units Ur Specific [place] (1.010-1.025) Urine Protein (Neg-Trace) mg/dL Urine Glucose (UA) (Normal) mg/dL Urine Ketones (Negative) mg/dL Urine Blood (Negative) Urine Nitrite (Negative) Urine Bilirubin (Negative) Urine Urobilinogen (Normal) mg/dL Ur Leukocyte Esterase (Negative) 05/20/17 05/20/17 05/20/17 Range/Units 13:23 13:23 13:39 WBC (4.3-11.1) K/mcL RBC (3.82-4.97) M/mcL Hgb (11.5-15.4) g/dL Hct (35.3-44.9) % MCV (83.0-100.0) fL MCH (28.0-33.3) pg MCHC (31.6-35.5) g/dL RDW (11.5-14.5) % Plt Count (140-400) K/mcL MPV (9.4-12.4) fL Immature Gran % (0-4) % Seg Neutrophils % % Lymphocytes % % Monocytes % % Eosinophils % % Basophils % % Neutrophils # (1.6-8.9) K/mcL Lymphocytes # (0.6-4.6) K/mcL Monocytes # (0.0-1.3) K/mcL Eosinophils # (0.0-0.6) K/mcL Basophils # (0.0-0.2) K/mcL VBG pH (7.32-7.42) pH Units VBG pCO2 (41-51) mmHg VBG pO2 (25-50) mmHg VBG HCO3 (21-27) mEq/L Sodium 133 L (136-145) mEq/L Potassium 3.1 L (3.5-5.1) mEq/L Chloride 90 L (98-107) mEq/L Carbon Dioxide 29 (23-29) mEq/L BUN 9 (6-20) mg/dL Creatinine 0.88 (0.60-1.20) mg/dL Est GFR ( Amer) > 60 (> 60) Est GFR (Non-Af Amer) > 60 (> 60) BUN/Creatinine Ratio 10 (6-26) Glucose 437 H (70-105) mg/dL POC Glucose (70-99) mg/dL Calculated Osmolality 293 (280-300) Calcium 10.8 H (8.6-10.3) mg/dL Total Bilirubin 0.8 (0.3-1.0) mg/dL Direct Bilirubin 0.2 (0.0-0.2) mg/dL Indirect Bilirubin 0.6 (0.0-1.2) mg/dL AST 12 L (13-39) Units/L ALT 12 (7-52) Units/L Alkaline Phosphatase 122 H (34-104) Units/L Serum Total Protein 8.7 (6.4-8.9) g/dL Albumin 4.8 (3.5-5.7) g/dL Globulin 3.9 H (2.4-3.5) g/dL Albumin/Globulin Ratio 1.2 (1.1-2.2) Lipase 24 (11-82) Units/L Beta-Hydroxybutyric Acd 0.47 H (0.02-0.27) mmol/L Urine Color Yellow (Yellow) Urine Clarity Clear (Clear) Urine pH 6.0 (5.0-8.0) pH Units Ur Specific [place] > 1.030 H (1.010-1.025) Urine Protein Negative (Neg-Trace) mg/dL Urine Glucose (UA) >=1000 H (Normal) mg/dL Urine Ketones Negative (Negative) mg/dL Urine Blood Negative (Negative) Urine Nitrite Negative (Negative) Urine Bilirubin Negative (Negative) Urine Urobilinogen Normal (Normal) mg/dL Ur Leukocyte Esterase Negative (Negative) 05/20/17 Range/Units 14:59 WBC (4.3-11.1) K/mcL RBC (3.82-4.97) M/mcL Hgb (11.5-15.4) g/dL Hct (35.3-44.9) % MCV (83.0-100.0) fL MCH (28.0-33.3) pg MCHC (31.6-35.5) g/dL RDW (11.5-14.5) % Plt Count (140-400) K/mcL MPV (9.4-12.4) fL Immature Gran % (0-4) % Seg Neutrophils % % Lymphocytes % % Monocytes % % Eosinophils % % Basophils % % Neutrophils # (1.6-8.9) K/mcL Lymphocytes # (0.6-4.6) K/mcL Monocytes # (0.0-1.3) K/mcL Eosinophils # (0.0-0.6) K/mcL Basophils # (0.0-0.2) K/mcL VBG pH 7.35 (7.32-7.42) pH Units VBG pCO2 61 H (41-51) mmHg VBG pO2 40 (25-50) mmHg VBG HCO3 34 H (21-27) mEq/L Sodium (136-145) mEq/L Potassium (3.5-5.1) mEq/L Chloride (98-107) mEq/L Carbon Dioxide (23-29) mEq/L BUN (6-20) mg/dL Creatinine (0.60-1.20) mg/dL Est GFR ( Amer) (> 60) Est GFR (Non-Af Amer) (> 60) BUN/Creatinine Ratio (6-26) Glucose (70-105) mg/dL POC Glucose (70-99) mg/dL Calculated Osmolality (280-300) Calcium (8.6-10.3) mg/dL Total Bilirubin (0.3-1.0) mg/dL Direct Bilirubin (0.0-0.2) mg/dL Indirect Bilirubin (0.0-1.2) mg/dL AST (13-39) Units/L ALT (7-52) Units/L Alkaline Phosphatase (34-104) Units/L Serum Total Protein (6.4-8.9) g/dL Albumin (3.5-5.7) g/dL Globulin (2.4-3.5) g/dL Albumin/Globulin Ratio (1.1-2.2) Lipase (11-82) Units/L Beta-Hydroxybutyric Acd (0.02-0.27) mmol/L Urine Color (Yellow) Urine Clarity (Clear) Urine pH (5.0-8.0) pH Units Ur Specific [place] (1.010-1.025) Urine Protein (Neg-Trace) mg/dL Urine Glucose (UA) (Normal) mg/dL Urine Ketones (Negative) mg/dL Urine Blood (Negative) Urine Nitrite (Negative) Urine Bilirubin (Negative) Urine Urobilinogen (Normal) mg/dL Ur Leukocyte Esterase (Negative) Attestation Statement - Attestation Attestation: I, Tang Beard, examined this patient and my medical decision-making was reviewed with the COMMUNITY RELATIONS SPECIALIST/PA/Advanced Practice Nurse/Resident Physician. I agree with the documented findings, disposition and treatment plan as described except to the extent set forth below. 52-year-old female presents emergency Department with concerns of hyperglycemia and a sore on her groin. Patient states that she has felt weak and fatigued over the past few days. Denies significant amount of like abdominal pain or vomiting or diarrhea. Patient does have an area of erythema to her groin which has been worsening over the past few days. Blood sugar was significantly elevated emergency department however on laboratory evaluation she had an anion gap of 14. Mild elevation of her ketones. Patient was given insulin in the emergency department as well as potassium replacement. CT of the abdomen pelvis does not show large abscess to be drained. Patient started on antibiotics in the emergency department. She is unable to afford her insulin at home secondary to the cost.
[2017-05-20] MEDS: Insulin LISPRO 300 UNITS/3 ML VIAL SQ SCH (20:27)
[2017-05-20] MEDS: Gabapentin 300 MG CAPSULE PO SCH (20:28)
[2017-05-20] MEDS: Spironolactone 25 MG TABLET PO SCH (20:28)
[2017-05-20] MEDS: Insulin DETEMIR 100 UNIT/ML X5UNITS SQ SCH (20:35)
[2017-05-20] MEDS: 0.9 % Sodium Chloride 1,000 ML IVC SCH (21:00)
[2017-05-20] MEDS: *HR* Heparin 5,000 UNIT/ML VIAL SQ SCH (21:04)
[2017-05-20] MEDS: BETHANECHOL CHLORIDE 10 MG PO SCH (21:07)
[2017-05-21] MEDS: Clindamycin 600 MG/50 ML 600 MG/50 ML IV.SOLN IVPB SCH ×3 (00:59→16:42)
[2017-05-21 05:31] LABS: Basophils % 0.4 %; Eosinophils % 0.3 %; Hematocrit 34.5 % (35.3-44.9); Immature Granulocytes % 0.4 % (0-4); Lymphocytes # 1.6 K/mcL (0.6-4.6); Lymphocytes % 16.5 %; Mean Corpuscular HGB Conc 33.6 g/dL (31.6-35.5); Mean Corpuscular Hemoglobin 30.2 pg (28.0-33.3); Mean Corpuscular Volume 89.8 fL (83.0-100.0); Mean Platelet Volume 10.6 fL (9.4-12.4); Monocytes # 0.8 K/mcL (0.0-1.3); Monocytes % 8.4 %; Neutrophils # 7.4 K/mcL (1.6-8.9); Platelet Count 202 K/mcL (140-400); Red Blood Count 3.84 M/mcL (3.82-4.97); Red Cell Distribution Width 12.8 % (11.5-14.5)
[2017-05-21 05:36] LABS: Hemoglobin 11.6 g/dL (11.5-15.4)
[2017-05-21 05:43] LABS: Alanine Aminotransferase 10 Units/L (7-52); Albumin 3.4 g/dL (3.5-5.7); Albumin/Globulin Ratio 1.1 (1.1-2.2); Alkaline Phosphatase 94 Units/L (34-104); Aspartate Amino Transferase 11 Units/L (13-39); BUN/Creatinine Ratio 12 (6-26); Bilirubin,Total 0.6 mg/dL (0.3-1.0); Blood Urea Nitrogen 9 mg/dL (6-20); Carbon Dioxide 28 mEq/L (23-29); Chloride 100 mEq/L (98-107); Globulin 3.1 g/dL (2.4-3.5); Glucose 341 mg/dL (70-105); Magnesium 1.3 mg/dL (1.6-2.6); Osmolality,Calculated 294 (280-300); Potassium 3.5 mEq/L (3.5-5.1); Sodium 136 mEq/L (136-145); Total Protein 6.5 g/dL (6.4-8.9); eGFR For African Americans > 60 (> 60); eGFR For Non-African Americans > 60 (> 60)
[2017-05-21] MEDS: 0.9 % Sodium Chloride 1,000 ML IVC SCH (06:50)
[2017-05-21] MEDS: *HR* Heparin 5,000 UNIT/ML VIAL SQ SCH ×2 (06:51→16:42)
[2017-05-21] MEDS: Fenofibrate 54 MG TABLET PO SCH (08:18)
[2017-05-21] MEDS: Gabapentin 300 MG CAPSULE PO SCH ×2 (08:18→20:36)
[2017-05-21] MEDS: Insulin LISPRO 300 UNITS/3 ML VIAL SQ SCH ×4 (08:18→20:49)
[2017-05-21] MEDS: hydroCHLOROthiazide 25 MG TABLET PO SCH (08:18)
[2017-05-21] MEDS: Loratadine 10 MG TABLET PO SCH (08:19)
[2017-05-21] MEDS: BETHANECHOL CHLORIDE 10 MG PO SCH ×2 (08:19→15:14)
[2017-05-21] MEDS: Spironolactone 25 MG TABLET PO SCH ×2 (08:20→20:43)
[2017-05-21] MEDS: Insulin DETEMIR 100 UNIT/ML X5UNITS SQ SCH (08:23)
[2017-05-21] MEDS ORDERED: Insulin NPH/REG 70/30 100 UNIT/ML (x5UNIT) SQ STA (14:32)
--- NOTE | 2017-05-21 15:06 | Internal Med Progress Note ---
Date of Encounter: 05/21/17 Time of Encounter: 15:01 - Assessment and plan (1) Hypertriglyceridemia Current Visit: Yes Status: Acute Assessment and plan: - Hx of DM and has no insulin at home for months due to financial issues. - Hyperglycemia without DKA, started on Levimer based on weight. BG improved but still elevated. - talked to the pharmacy and recommended switch Levimer to NPH/70/30 because of the esparza advantage, likely affordable to pt. - Change to NPH 70/30 20 unit in am and 10 unit in PM. - Continue insulin S, - IF BG controlled, expect dc home tomorrow. (2) Cellulitis Current Visit: Yes Status: Acute Assessment and plan: - right groin cellulitis without abscess. - continue Clindymycin. switch to po in am. Qualifiers: Site of cellulitis: unspecified site Qualified Code(s): L03.90 - Cellulitis , unspecified (3) Hypokalemia Current Visit: Yes Status: Resolved (4) Non compliance w medication regimen Current Visit: Yes Status: Acute (5) Diabetes mellitus Current Visit: No Status: Inactive Assessment and plan: - as above. Qualifiers: Diabetes mellitus type: type 2 Diabetes mellitus terminal operations manager insulin use: without jail use Diabetes mellitus complication status: without complication Qualified Code(s): E11.9 - Type 2 diabetes mellitus without complications - Time Spent With Patient Total time spent is greater than 50% in coordination of care (as documented) at patient's floor/unit and/or counseling patient: - Subjective Interval history: Patient resting in bed she has no complaints. - Constitutional Vitals: Temp Pulse Resp BP Pulse Ox 97.9 F 105 14 106/69 91 05/21/17 10:44 05/21/17 10:44 05/21/17 10:44 05/21/17 10:44 05/21/17 10:44 General appearance: Present: A&O X 3 Exam: PHYSICAL EXAMINATION: GENERAL APPEARANCE: The patient is alert, oriented and in no acute distress. HEENT: Head is normocephalic. The sinuses are nontender. Pupils are equal and reactive. The nares are patent. Oropharynx clear without lesions. NECK: Supple without lymphadenopathy. HEART: Regular rate and rhythm. LUNGS: No crackles or wheezes are heard. ABDOMEN: Soft, nontender, nondistended with good bowel sounds heard. Inguinal area is normal. EXTREMITIES: Without cyanosis, clubbing or edema. NEUROLOGICAL: Gross nonfocal. SKIN: Warm and dry without any rash. Internal Medicine: Result - Labs CBC & Chem 7: 05/21/17 04:31 05/21/17 04:31 Labs: Short CBC 05/21/17 Range/Units 04:31 WBC 9.9 (4.3-11.1) K/mcL Hgb 11.6 D (11.5-15.4) g/dL Hct 34.5 L (35.3-44.9) % Plt Count 202 (140-400) K/mcL Neutrophils # 7.4 (1.6-8.9) K/mcL BMP 05/21/17 04:31 Sodium 136 Potassium 3.5 Chloride 100 Carbon Dioxide 28 BUN 9 Creatinine 0.74 Glucose 341 H Calcium 9.0 Liver Function 05/21/17 Range/Units 04:31 Total Bilirubin 0.6 (0.3-1.0) mg/dL AST 11 L (13-39) Units/L ALT 10 (7-52) Units/L Alkaline Phosphatase 94 (34-104) Units/L Albumin 3.4 L (3.5-5.7) g/dL Consult Discharge Plan - Plan Referrals: Zeynep Gonsales MD [Primary Care Provider] -
[2017-05-21] MEDS: Insulin NPH/REG 70/30 100 UNIT/ML (x5UNIT) SQ SCH (16:42)
[2017-05-21] MEDS ORDERED: Insulin DETEMIR 100 UNIT/ML X5UNITS SQ SCH (21:00)
[2017-05-22] MEDS: BETHANECHOL CHLORIDE 10 MG PO SCH ×4 (00:21→23:51)
[2017-05-22] MEDS: Clindamycin 600 MG/50 ML 600 MG/50 ML IV.SOLN IVPB SCH ×2 (00:28→08:06)
[2017-05-22 05:31] LABS: BUN/Creatinine Ratio 14 (6-26); Blood Urea Nitrogen 10 mg/dL (6-20); Calcium 9.1 mg/dL (8.6-10.3); Carbon Dioxide 29 mEq/L (23-29); Chloride 101 mEq/L (98-107); Glucose 237 mg/dL (70-105); Magnesium 1.5 mg/dL (1.6-2.6); Osmolality,Calculated 295 (280-300); Potassium 3.4 mEq/L (3.5-5.1); Sodium 139 mEq/L (136-145); eGFR For African Americans > 60 (> 60); eGFR For Non-African Americans > 60 (> 60)
[2017-05-22] MEDS: *HR* Heparin 5,000 UNIT/ML VIAL SQ SCH ×2 (05:55→17:39)
[2017-05-22] MEDS: Loratadine 10 MG TABLET PO SCH (08:02)
[2017-05-22] MEDS: hydroCHLOROthiazide 25 MG TABLET PO SCH (08:02)
[2017-05-22] MEDS: Gabapentin 300 MG CAPSULE PO SCH ×2 (08:02→23:50)
[2017-05-22] MEDS: Spironolactone 25 MG TABLET PO SCH ×2 (08:02→23:50)
[2017-05-22] MEDS: Fenofibrate 54 MG TABLET PO SCH (08:02)
[2017-05-22] MEDS: Insulin LISPRO 300 UNITS/3 ML VIAL SQ SCH ×6 (08:03→23:51)
[2017-05-22] MEDS: Magnesium Oxide 400 MG TABLET PO SCH ×2 (09:33→23:51)
[2017-05-22] MEDS: Insulin NPH/REG 70/30 100 UNIT/ML (x5UNIT) SQ SCH ×2 (10:23→19:00)
--- NOTE | 2017-05-22 12:23 | Internal Med Progress Note ---
Date of Encounter: 05/22/17 Time of Encounter: 12:21 - Assessment and plan (1) Hyperglycemia Current Visit: Yes Status: Acute Assessment and plan: - Hx of DM and has no insulin at home for months due to financial issues. - Hyperglycemia without DKA, started on Levimer based on weight. BG improved but still elevated. - talked to the pharmacy and recommended switch Levimer to NPH/70/30 because of the esparza advantage, likely affordable to pt. - Change to NPH 70/30 20 unit in am and 10 unit in PM. add bolus insulin TIDAC today - Continue insulin SS, - IF BG controlled, expect dc home tomorrow. (2) Diabetes mellitus Current Visit: No Status: Inactive Assessment and plan: - as above. Qualifiers: Diabetes mellitus type: type 2 Diabetes mellitus skilled nursing insulin use: without termite helper use Diabetes mellitus complication status: without complication Qualified Code(s): E11.9 - Type 2 diabetes mellitus without complications (3) Cellulitis Current Visit: Yes Status: Acute Assessment and plan: - right groin cellulitis without abscess. - switch IV Clindymycin to po. Qualifiers: Site of cellulitis: unspecified site Qualified Code(s): L03.90 - Cellulitis , unspecified (4) Hypokalemia Current Visit: Yes Status: Resolved Assessment and plan: - replaced at ED, will check K+ in am. (5) Non compliance w medication regimen Current Visit: Yes Status: Acute - Time Spent With Patient Total time spent is greater than 50% in coordination of care (as documented) at patient's floor/unit and/or counseling patient: Greater than 35 minutes - Subjective Interval history: Patient resting in bed she has no complaints. - Constitutional Vitals: Temp Pulse Resp BP Pulse Ox 98.0 F 84 15 100/69 96 05/22/17 11:18 05/22/17 11:18 05/22/17 11:18 05/22/17 11:18 05/22/17 11:18 General appearance: Present: A&O X 3 Exam: PHYSICAL EXAMINATION: GENERAL APPEARANCE: The patient is alert, oriented and in no acute distress. HEENT: Head is normocephalic. The sinuses are nontender. Pupils are equal and reactive. The nares are patent. Oropharynx clear without lesions. NECK: Supple without lymphadenopathy. HEART: Regular rate and rhythm. LUNGS: No crackles or wheezes are heard. ABDOMEN: Soft, nontender, nondistended with good bowel sounds heard. Inguinal area is normal. EXTREMITIES: Without cyanosis, clubbing or edema. NEUROLOGICAL: Gross nonfocal. SKIN: Warm and dry without any rash. Internal Medicine: Result - Labs CBC & Chem 7: 05/21/17 04:31 05/22/17 04:24 Labs: BMP 05/22/17 04:24 Sodium 139 Potassium 3.4 L Chloride 101 Carbon Dioxide 29 BUN 10 Creatinine 0.69 Glucose 237 H Calcium 9.1 Consult Discharge Plan - Plan Referrals: Zeynep Gonsales MD [Primary Care Provider] -
[2017-05-23] MEDS: *HR* Heparin 5,000 UNIT/ML VIAL SQ SCH (06:18)
[2017-05-23] MEDS: BETHANECHOL CHLORIDE 10 MG PO SCH (08:27)
[2017-05-23] MEDS: hydroCHLOROthiazide 25 MG TABLET PO SCH (08:38)
[2017-05-23] MEDS: Insulin LISPRO 300 UNITS/3 ML VIAL SQ SCH ×4 (08:42→11:29)
[2017-05-23] MEDS: Insulin NPH/REG 70/30 100 UNIT/ML (x5UNIT) SQ SCH (08:48)
[2017-05-23] MEDS: Spironolactone 25 MG TABLET PO SCH (08:48)
[2017-05-23] MEDS: Magnesium Oxide 400 MG TABLET PO SCH (08:48)
[2017-05-23] MEDS: Loratadine 10 MG TABLET PO SCH (08:48)
[2017-05-23] MEDS: Gabapentin 300 MG CAPSULE PO SCH (08:48)
[2017-05-23] MEDS: Fenofibrate 54 MG TABLET PO SCH (08:48)
[2017-05-23 10:59] VITALS: BP 101/66
--- NOTE | 2017-05-23 12:12 | Discharge Summary ---
- NOTES TO OUTPATIENT PROVIDER Notes to Outpatient Provider: f/u with PCP within a week. Date of Encounter: 05/23/17 Time of Encounter: 12:10 - Discharge Diagnosis (1) Hyperglycemia Priority: Primary Status: Acute (2) Diabetes mellitus Priority: Primary Status: Chronic Qualifiers: Diabetes mellitus type: type 2 Diabetes mellitus mcfp insulin use: without mcfp use Diabetes mellitus complication status: without complication Qualified Code(s): E11.9 - Type 2 diabetes mellitus without complications (3) Cellulitis Priority: Primary Status: Acute Qualifiers: Site of cellulitis: unspecified site Qualified Code(s): L03.90 - Cellulitis , unspecified (4) Hypokalemia Priority: Secondary Status: Resolved (5) Non compliance w medication regimen Priority: Primary Status: Acute Hospital course: Ms. Herrera is a 52 year old female 's past medical history of diabetes presented with hypoglycemia. Due to financial issues, she has run out of insulin and has not been refilled for several months. Her blood sugar upon admission was more than 600 with mild ketosis. Initially she was started on Lantus and the NovoLog sliding scale with improvement of hypoglycemia. Lantus has switched to NPH 70/30 because it is cheaper and affordable to patient. She was also started on bolus NovoLog before each meal, her blood glucose level upon discharge has been fairly well controlled. She also was found to have cellulitis at the right groin, which was treated with IV clindamycin. Antibiotics has been changed to oral and she continued doing well. She will be discharged home today. She will continue to take oral clindamycin for 7 more days. She was instructed to take NPH 70/30 as ordered, was instructed to take NovoLog bolus dose before each meal, and take extra NovoLog based on sliding scale. Follow-up with PCP regarding insulin dose adjustment. Appointment with PCP was made on 05/31. Discharge discussed with: patient Time spent discussing smoking cessation with patient: more than 10 minutes - Time Spent with Patient Total time spent providing and/or coordinating discharge services: Greater than 30 minutes - Discharge Medications Prescriptions: Clindamycin [Cleocin] 300 mg PO Q8HR #21 capsule Insulin ASPART [Novolog Flexpen] 5 unit SQ TIDWM #2 insuln.pen Insulin NPH/REG 70/30 (HUMAN) [Humulin 70/30 Vial] 20 unit SQ QAM #1 bottle Home Medications: Metformin HCl [Metformin HCl ER] 1,000 mg PO BID 05/10/15 [History] Pantoprazole Sodium [Protonix] 40 mg PO DAILY 05/10/15 [History] Ranitidine HCl [Zantac] 150 mg PO BID 05/10/15 [History] Tizanidine HCl [Zanaflex] 4 - 8 mg PO TID PRN 05/10/15 [History] Losartan [Cozaar] 25 mg PO DAILY 01/11/17 [History] Lovastatin 10 mg PO HS 01/11/17 [History] Ondansetron ODT [Zofran ODT] 4 mg PO TID PRN 01/11/17 [History] Spironolactone [Aldactone] 25 mg PO BID 01/11/17 [History] hydroCHLOROthiazide [Hydrochlorothiazide] 25 mg PO DAILY 01/11/17 [History] Bethanechol Chloride [Urecholine] 10 mg PO TID 05/20/17 [History] Cetirizine HCl [Zyrtec] 10 mg PO DAILY 05/20/17 [History] Docusate [Colace] 100 mg PO BID PRN 05/20/17 [History] Doxepin [Sinequan] 25 mg PO HS 05/20/17 [History] Duloxetine HCl [Cymbalta] 120 mg PO HS 05/20/17 [History] Fenofibrate [Tricor] 54 mg PO DAILY 05/20/17 [History] Fluticasone Propionate Nasal [Flonase] 50 mcg NS DAILY PRN 05/20/17 [History] Gabapentin [Neurontin] 600 mg PO BID 05/20/17 [History] Clindamycin [Cleocin] 300 mg PO Q8HR #21 capsule 05/23/17 [Rx] Insulin ASPART [Novolog Flexpen] 5 unit SQ TIDWM #2 insuln.pen 05/23/17 [Rx] Insulin NPH/REG 70/30 (HUMAN) [Humulin 70/30 Vial] 10 unit SQ QPM [id number] 05/23 [Rx] Insulin NPH/REG 70/30 (HUMAN) [Humulin 70/30 Vial] 20 unit SQ QAM #1 bottle 01/28 [Rx] Allergies/Adverse Reactions: 3 Allergy/AdvReac Type Severity Reaction Status Date / Time hydrocodone [From Vicodin] AdvReac Nausea Verified 01/11/17 12:36 Date of admission: 05/20/17 18:08 Primary care physician: Zeynep Gonsales MD Consults: 05/21/17 08:31 Consult to [employer]ist [CONS] Routine Reason for SW Consult: Financial concerns Anticipated date of discharge: 05/23/17 - Constitutional Vitals: Temp Pulse Resp BP Pulse Ox 98.9 F 91 14 101/66 93 05/23/17 10:58 05/23/17 10:58 05/23/17 10:58 05/23/17 10:58 05/23/17 10:58 General appearance: Present: A&O X 3 Exam: PHYSICAL EXAMINATION: GENERAL APPEARANCE: The patient is alert, oriented and in no acute distress. HEENT: Head is normocephalic. The sinuses are nontender. Pupils are equal and reactive. The nares are patent. Oropharynx clear without lesions. NECK: Supple without lymphadenopathy. HEART: Regular rate and rhythm. LUNGS: No crackles or wheezes are heard. ABDOMEN: Soft, nontender, nondistended with good bowel sounds heard. Inguinal area is normal. EXTREMITIES: Without cyanosis, clubbing or edema. NEUROLOGICAL: Gross nonfocal. SKIN: Warm and dry without any rash. - Patient Status Disposition: Home, Self-Care Condition: Good Functional capacity at discharge: independent ambulation Overall status at discharge: patient is back to baseline - Discharge Instructions Instructions: Clindamycin (By mouth), Insulin Aspart, Recombinant (Injection), Insulin NPH/Regular (Injection) Follow Up With: Zeynep Gonsales MD [Primary Care Provider] - 05/31/17 9:00 am - Diet and Activity Activity: increase activity as tolerated Diet: diabetic diet
== END 2017-05-23 13:46 | disposition home or self-care (01) ==
LOC: 3ANU 13:18 → EMEROO 13:18 → 3ANU 19:10
PROVIDERS: ADMIT Student in an Organized Health Care Education/Training Program; ATTEND Internal Medicine

== ENCOUNTER 2019-02-19 06:41 | Inpatient (IN) ==
[2019-02-19 07:20] LABS: Prothrombin Time 11.3 Seconds (9.4-12.1)
[2019-02-19 07:24] LABS: Activated Partial Thrombo Time 30.7 Seconds (26.0-36.0)
[2019-02-19 07:44] LABS: Basophils # 0.1 K/mcL (0.0-0.2); Basophils % 0.9 %; Eosinophils # 0.1 K/mcL (0.0-0.6); Eosinophils % 2.1 %; Hematocrit 35.9 % (35.3-44.9); Immature Granulocytes % 0.3 % (0-4); Lymphocytes # 2.2 K/mcL (0.6-4.6); Lymphocytes % 32.4 %; Mean Corpuscular HGB Conc 33.4 g/dL (31.6-35.5); Mean Corpuscular Hemoglobin 30.1 pg (28.0-33.3); Mean Platelet Volume 11.2 fL (9.4-12.4); Monocytes # 0.5 K/mcL (0.0-1.3); Monocytes % 7.3 %; Neutrophils # 3.8 K/mcL (1.6-8.9); Platelet Count 242 K/mcL (140-400); Red Blood Count 3.99 M/mcL (3.82-4.97); Red Cell Distribution Width 12.8 % (11.5-14.5); White Blood Count 6.7 K/mcL (4.3-11.1)
[2019-02-19] MEDS ORDERED: Nitroglycerin 1 INCH/GM PACKET TP ONE (07:46)
[2019-02-19] MEDS ORDERED: Ondansetron 4 MG/2 ML VIAL IVP ONE (08:56)
[2019-02-19 09:06] LABS: Alanine Aminotransferase 25 Units/L (7-52); Albumin/Globulin Ratio 1.5 (1.1-2.2); Alkaline Phosphatase 82 Units/L (34-104); Aspartate Amino Transferase 24 Units/L (13-39); BUN/Creatinine Ratio 15 (6-26); Bilirubin,Direct 0.1 mg/dL (0.0-0.2); Bilirubin,Indirect 0.2 mg/dL (0.0-1.0); Bilirubin,Total 0.3 mg/dL (0.3-1.0); Blood Urea Nitrogen 12 mg/dL (6-20); Carbon Dioxide 24 mEq/L (23-29); Chloride 101 mEq/L (98-107); Globulin 2.7 g/dL (2.4-3.5); Glucose 287 mg/dL (70-105); Lipase 30 Units/L (11-82); Osmolality,Calculated 294 (280-300); Potassium 3.9 mEq/L (3.5-5.1); Sodium 137 mEq/L (136-145); Total Protein 6.7 g/dL (6.4-8.9); Troponin I 0.06 ng/mL (< 0.04); eGFR For African Americans > 60 (> 60); eGFR For Non-African Americans > 60 (> 60)
[2019-02-19] MEDS ORDERED: Naloxone 0.4 MG/ML INJ IVP PRN (09:38)
[2019-02-19] MEDS ORDERED: Acetaminophen 325 MG TABLET PO PRN (09:38)
[2019-02-19] MEDS ORDERED: Ondansetron 4 MG/2 ML VIAL IVP PRN (09:38)
[2019-02-19] MEDS ORDERED: Dextrose Gel 15 GM/37.5 ML TUBE PO PRN ×2 (09:40)
[2019-02-19] MEDS ORDERED: *HR* Dextrose 50 % in Water (Syg) 50 ML SYRINGE IVP PRN (09:40)
[2019-02-19] MEDS ORDERED: D5% in Water 1,000 ML IVC PRN (09:40)
[2019-02-19] MEDS ORDERED: *HR* Heparin 5,000 UNIT/ML VIAL IVP ONE (09:41)
[2019-02-19] MEDS ORDERED: *HR* Heparin 5,000 UNIT/ML VIAL IVP PRN ×2 (09:41)
[2019-02-19] MEDS ORDERED: Fluticasone Propionate Nasal 50 MCG/SPRAY BOTTLE NS PRN (09:43)
[2019-02-19 10:31] LABS: Hematocrit 39.8 % (35.3-44.9); Hemoglobin 13.4 g/dL (11.5-15.4); Mean Corpuscular HGB Conc 33.7 g/dL (31.6-35.5); Mean Corpuscular Hemoglobin 29.9 pg (28.0-33.3); Mean Corpuscular Volume 88.8 fL (83.0-100.0); Platelet Count 214 K/mcL (140-400); Red Blood Count 4.48 M/mcL (3.82-4.97); Red Cell Distribution Width 12.7 % (11.5-14.5)
[2019-02-19 10:40] LABS: Prothrombin Time 11.1 Seconds (9.4-12.1)
[2019-02-19 10:42] LABS: Heparin anti-factor XA UFH 0.01 IU/mL (0.30-0.70)
[2019-02-19 10:52] LABS: Estimated Average Glucose 243 mg/dl
[2019-02-19 10:53] LABS: Chol/HDL Ratio 5.4 (0-4.9); Cholesterol 238 mg/dL (< 200); HDL Cholesterol 44 mg/dL (40-59); Triglycerides 490 mg/dL (< 150)
[2019-02-19 11:23] LABS: Bilirubin,Urine Negative (Negative); Blood,Urine Negative (Negative); Clarity,Urine Clear (Clear); Color,Urine Yellow (Yellow); Glucose,Urine (UA) >=1000 mg/dL (Normal); Ketones,Urine Trace mg/dL (Negative); Leukocyte Esterase,Urine Negative (Negative); Nitrite,Urine Negative (Negative); PH,Urine 5.5 pH Units (5.0-8.0); Protein,Urine 100 mg/dL (Neg-Trace); Specific Gravity,Urine 1.027 (1.010-1.025); Urobilinogen,Urine Normal (Normal)
[2019-02-19 11:26] LABS: Bacteria,Urine None Seen per hpf (None-Few); Hyaline Casts,Urine None Seen per lpf (None-Few); RBC,Urine 0-3 per hpf (0-3); Squamous Epithelial Cell,Urine Many per lpf (None-Few)
[2019-02-19 11:29] LABS: Amphetamine Screen,Urine Negative ng/mL (Cutoff=1000); Barbiturate Screen,Urine Negative ng/mL (Cutoff=200); Benzodiazepines Screen,Urine Negative ng/mL (Cutoff=200); Cannabinoid Screen,Urine Negative ng/mL (Cutoff = 50); Cocaine Screen,Urine Negative ng/mL (Cutoff= 300); Opiate Screen,Urine Negative ng/mL (Cutoff=300); Phencyclidine Screen,Urine Negative ng/mL (Cutoff=25)
[2019-02-19] MEDS: Heparin 25,000 UNIT/250 ML D5W 25,000 UNIT/250 ML IV.SOLN IVC SCH (12:08)
[2019-02-19] MEDS: carvediloL 6.25 MG TABLET PO SCH ×2 (12:16→17:22)
[2019-02-19] MEDS: Insulin LISPRO 300 UNITS/3 ML VIAL SQ SCH ×2 (12:22→17:18)
[2019-02-19] MEDS: Gabapentin 300 MG CAPSULE PO SCH (21:42)
[2019-02-19] MEDS: Spironolactone 25 MG TABLET PO SCH (21:42)
[2019-02-19] MEDS: Insulin DETEMIR 100 UNIT/ML X5UNITS SQ SCH (22:23)
[2019-02-20 02:17] LABS: BUN/Creatinine Ratio 15 (6-26); Blood Urea Nitrogen 12 mg/dL (6-20); Calcium 9.2 mg/dL (8.6-10.3); Carbon Dioxide 24 mEq/L (23-29); Chloride 98 mEq/L (98-107); Glucose 252 mg/dL (70-105); Magnesium 1.4 mg/dL (1.6-2.6); Osmolality,Calculated 284 (280-300); Phosphorous 3.1 mg/dL (2.7-4.5); Potassium 3.5 mEq/L (3.5-5.1); Sodium 133 mEq/L (136-145); eGFR For African Americans > 60 (> 60); eGFR For Non-African Americans > 60 (> 60)
[2019-02-20] MEDS ORDERED: Magnesium Sulfate 4 GM in 0.9 % Sodium Chloride 100 ML IVPB ONE (08:01)
[2019-02-20] MEDS: Insulin LISPRO 300 UNITS/3 ML VIAL SQ SCH ×3 (08:28→17:48)
[2019-02-20] MEDS: Spironolactone 25 MG TABLET PO SCH ×2 (08:29→20:34)
[2019-02-20] MEDS: Fenofibrate 54 MG TABLET PO SCH (08:29)
[2019-02-20] MEDS: Aspirin Enteric Coated 81 MG Tablet PO SCH (08:29)
[2019-02-20] MEDS: carvediloL 6.25 MG TABLET PO SCH ×2 (08:30→17:47)
[2019-02-20] MEDS: Heparin 25,000 UNIT/250 ML D5W 25,000 UNIT/250 ML IV.SOLN IVC SCH (08:31)
[2019-02-20] MEDS: Insulin DETEMIR 100 UNIT/ML X5UNITS SQ SCH ×2 (10:33→21:15)
[2019-02-20] MEDS ORDERED: Heparin 1,000 UNITS/500 mL 500 ML ONE (12:22)
[2019-02-20] MEDS ORDERED: ISOVUE-370 200 ML INFUS..BTL ONE (12:22)
[2019-02-20] MEDS ORDERED: *HR* Heparin 10,000 UNIT/10 ML VIAL ONE (12:22)
[2019-02-20] MEDS ORDERED: 0.9 % Sodium Chloride 1,000 ML ONE ×3 (12:22→16:36)
[2019-02-20] MEDS ORDERED: Nitroglycerin 1,000 MCG/10 ML VIAL IV ONE (12:22)
[2019-02-20] MEDS ORDERED: *HR* Midazolam HCl 2 MG/2 ML VIAL ONE (12:29)
[2019-02-20] MEDS ORDERED: *HR* FentaNYL (PF) 100 MCG/2 ML VIAL ONE (12:30)
[2019-02-20] MEDS ORDERED: *HR* Bivalirudin 250 MG VIAL IVC ONE ×2 (13:19→13:22)
[2019-02-20] MEDS ORDERED: *HR* Ticagrelor 90 MG TABLET ONE (13:22)
[2019-02-20] MEDS ORDERED: Nitroglycerin 0.4 MG TAB.SUBL SL PRN (13:58)
[2019-02-20] MEDS ORDERED: 0.9 % Sodium Chloride 1,000 ML IVC SCH (14:00)
[2019-02-20] MEDS: Gabapentin 300 MG CAPSULE PO SCH (20:34)
[2019-02-21 07:57] LABS: BUN/Creatinine Ratio 13 (6-26); Blood Urea Nitrogen 11 mg/dL (6-20); Troponin I 9.96 ng/mL (< 0.04); eGFR For African Americans > 60 (> 60); eGFR For Non-African Americans > 60 (> 60)
[2019-02-21] MEDS ORDERED: Insulin DETEMIR 100 UNIT/ML X5UNITS SQ SCH (09:00)
[2019-02-21] MEDS: Aspirin Enteric Coated 81 MG Tablet PO SCH (09:06)
[2019-02-21] MEDS: carvediloL 6.25 MG TABLET PO SCH (09:06)
[2019-02-21] MEDS: Fenofibrate 54 MG TABLET PO SCH (09:06)
[2019-02-21] MEDS: Insulin LISPRO 300 UNITS/3 ML VIAL SQ SCH ×2 (09:10→11:40)
[2019-02-21 14:36] LABS: Estimated Average Glucose 243 mg/dl
[2019-02-21 14:53] VITALS: BP 92/58
== END 2019-02-21 16:52 | disposition home or self-care (01) | DRG 247 ==
LOC: EMEROOARM 06:41 → CDU 06:41 → 3BNU 18:07 → 2ANU 02-20 15:04 → SUATTDRO 02-20 15:05
PROVIDERS: ADMIT Internal Medicine; ATTEND Internal Medicine

== ENCOUNTER 2019-02-23 20:11 | Inpatient (IN) ==
[2019-02-23] MEDS ORDERED: 0.9 % Sodium Chloride 1,000 ML IVC ONE (21:38)
[2019-02-23 23:14] LABS: Basophils % 0.5 %; Eosinophils # 0.1 K/mcL (0.0-0.6); Eosinophils % 0.8 %; Hematocrit 39.3 % (35.3-44.9); Immature Granulocytes % 0.5 % (0-4); Lymphocytes # 0.9 K/mcL (0.6-4.6); Lymphocytes % 11.7 %; Mean Corpuscular HGB Conc 33.1 g/dL (31.6-35.5); Mean Corpuscular Hemoglobin 29.7 pg (28.0-33.3); Mean Corpuscular Volume 89.9 fL (83.0-100.0); Mean Platelet Volume 10.5 fL (9.4-12.4); Monocytes # 0.5 K/mcL (0.0-1.3); Neutrophils # 5.8 K/mcL (1.6-8.9); Platelet Count 202 K/mcL (140-400); Red Blood Count 4.37 M/mcL (3.82-4.97); Red Cell Distribution Width 13.2 % (11.5-14.5); Segmented Neutrophils % 79.5 %; White Blood Count 7.3 K/mcL (4.3-11.1)
[2019-02-24 00:37] LABS: Bilirubin,Urine Negative (Negative); Blood,Urine Negative (Negative); Clarity,Urine Clear (Clear); Color,Urine Yellow (Yellow); Glucose,Urine (UA) 100 mg/dL (Normal); Ketones,Urine Trace mg/dL (Negative); Leukocyte Esterase,Urine Small (Negative); Nitrite,Urine Negative (Negative); PH,Urine 6.5 pH Units (5.0-8.0); Protein,Urine Trace mg/dL (Neg-Trace); Specific Gravity,Urine 1.022 (1.010-1.025); Urobilinogen,Urine Normal (Normal)
[2019-02-24 00:38] LABS: Bacteria,Urine None Seen per hpf (None-Few); Hyaline Casts,Urine None Seen per lpf (None-Few); RBC,Urine 0-3 per hpf (0-3); Squamous Epithelial Cell,Urine Many per lpf (None-Few)
[2019-02-24 00:52] LABS: Troponin I 3.02 ng/mL (< 0.04)
[2019-02-24] MEDS ORDERED: cefTRIAXone 1,000 MG in Water for inj. (sterile) 10 ML IVP STA (01:01)
[2019-02-24 01:07] LABS: Alanine Aminotransferase 24 Units/L (7-52); Albumin 3.6 g/dL (3.5-5.7); Albumin/Globulin Ratio 1.4 (1.1-2.2); Alkaline Phosphatase 105 Units/L (34-104); Aspartate Amino Transferase 30 Units/L (13-39); BUN/Creatinine Ratio 11 (6-26); Bilirubin,Direct 0.2 mg/dL (0.0-0.2); Bilirubin,Indirect 0.5 mg/dL (0.0-1.0); Bilirubin,Total 0.7 mg/dL (0.3-1.0); Blood Urea Nitrogen 8 mg/dL (6-20); Calcium 8.4 mg/dL (8.6-10.3); Carbon Dioxide 22 mEq/L (23-29); Chloride 106 mEq/L (98-107); Globulin 2.6 g/dL (2.4-3.5); Glucose 173 mg/dL (70-105); Magnesium 1.1 mg/dL (1.6-2.6); Osmolality,Calculated 286 (280-300); Phosphorous 2.1 mg/dL (2.7-4.5); Potassium 3.4 mEq/L (3.5-5.1); Sodium 137 mEq/L (136-145); Total Protein 6.2 g/dL (6.4-8.9); eGFR For African Americans > 60 (> 60); eGFR For Non-African Americans > 60 (> 60)
[2019-02-24] MEDS ORDERED: Aspirin Enteric Coated 325 MG Tablet PO ONE (01:08)
[2019-02-24] MEDS ORDERED: *HR* Heparin 5,000 UNIT/ML VIAL IVP PRN ×2 (01:09)
[2019-02-24] MEDS ORDERED: Aspirin Enteric Coated 81 MG Tablet PO ONE (02:15)
[2019-02-24] MEDS: 0.9 % Sodium Chloride 1,000 ML IVC SCH ×3 (02:17→20:32)
[2019-02-24] MEDS: Heparin 25,000 UNIT/250 ML D5W 25,000 UNIT/250 ML IV.SOLN IVC SCH ×2 (02:18→22:55)
[2019-02-24 02:54] LABS: INR 1.3; Prothrombin Time 14.7 Seconds (9.4-12.1)
[2019-02-24 02:56] LABS: Hematocrit 36.1 % (35.3-44.9); Mean Corpuscular HGB Conc 33.2 g/dL (31.6-35.5); Mean Corpuscular Hemoglobin 29.8 pg (28.0-33.3); Mean Corpuscular Volume 89.6 fL (83.0-100.0); Mean Platelet Volume 10.5 fL (9.4-12.4); Platelet Count 205 K/mcL (140-400); Red Blood Count 4.03 M/mcL (3.82-4.97); Red Cell Distribution Width 13.2 % (11.5-14.5); White Blood Count 6.6 K/mcL (4.3-11.1)
[2019-02-24 03:01] LABS: Amphetamine Screen,Urine Negative ng/mL (Cutoff=1000); Barbiturate Screen,Urine Negative ng/mL (Cutoff=200); Benzodiazepines Screen,Urine Negative ng/mL (Cutoff=200); Cannabinoid Screen,Urine Negative ng/mL (Cutoff = 50); Cocaine Screen,Urine Negative ng/mL (Cutoff= 300); Opiate Screen,Urine Negative ng/mL (Cutoff=300); Phencyclidine Screen,Urine Negative ng/mL (Cutoff=25)
[2019-02-24 06:53] LABS: Adenovirus Not Detected (Not Detect); Coronavirus 229E Not Detected (Not Detect); Coronavirus HKU1 Not Detected (Not Detect); Coronavirus NL63 Not Detected (Not Detect); Coronavirus OC43 Not Detected (Not Detect); Human Rhinovirus/Enterovirus Not Detected (Not Detect)
[2019-02-24 06:54] LABS: Bordetella Pertussis Not Detected (Not Detect); Chlamydophila pneumoniae Not Detected (Not Detect); Human Metapneumovirus DETECTED (Not Detect); Influenza A Subtype 2009 H1 Not Detected (Not Detect); Influenza B Not Detected (Not Detect); Mycoplasma pneumoniae Not Detected (Not Detect); Parainfluenza Virus 1 Not Detected (Not Detect); Parainfluenza Virus 2 Not Detected (Not Detect); Parainfluenza Virus 3 Not Detected (Not Detect); Parainfluenza Virus 4 Not Detected (Not Detect); Respiratory Syncytial Virus Not Detected (Not Detect)
[2019-02-24] MEDS ORDERED: cefTRIAXone 1,000 MG in 0.9 % Sodium Chloride Mini Bag 100 ML IVPB SCH (08:00)
[2019-02-24] MEDS ORDERED: Ondansetron 4 MG/2 ML VIAL IVP PRN (08:51)
[2019-02-24] MEDS ORDERED: Naloxone 0.4 MG/ML INJ IVP PRN (08:51)
[2019-02-24] MEDS ORDERED: MOM Conc 10 ML UD.LIQ PO PRN (08:51)
[2019-02-24] MEDS ORDERED: *HR* Dextrose 50 % in Water (Syg) 50 ML SYRINGE IVP PRN (08:54)
[2019-02-24] MEDS ORDERED: Dextrose Gel 15 GM/37.5 ML TUBE PO PRN ×2 (08:54)
[2019-02-24] MEDS ORDERED: D5% in Water 1,000 ML IVC PRN (08:54)
[2019-02-24] MEDS ORDERED: *HR* Heparin 5,000 UNIT/ML VIAL ONE (10:23)
[2019-02-24] MEDS: Insulin DETEMIR 100 UNIT/ML X5UNITS SQ SCH ×2 (10:33→20:36)
[2019-02-24] MEDS: Acetaminophen 325 MG TABLET PO PRN ×2 (11:07→18:54)
[2019-02-24] MEDS: Fluticasone Propionate Nasal 50 MCG/SPRAY BOTTLE NS SCH (12:37)
[2019-02-24] MEDS: Gabapentin 300 MG CAPSULE PO SCH ×2 (12:37→20:32)
[2019-02-24] MEDS: carvediloL 6.25 MG TABLET PO SCH ×2 (13:01→18:54)
[2019-02-24] MEDS: Famotidine 20 MG TABLET PO SCH (14:57)
[2019-02-24] MEDS: Insulin LISPRO 300 UNITS/3 ML VIAL SQ SCH ×2 (14:57→18:54)
[2019-02-25] MEDS ORDERED: Ipratropium/Albuterol Neb 3 ML ONE (01:52)
[2019-02-25] MEDS ORDERED: cefTRIAXone 1,000 MG in Water for inj. (sterile) 10 ML IVP SCH (02:00)
[2019-02-25] MEDS: Ipratropium/Albuterol Neb 3 ML IH SCH ×6 (02:02→19:51)
[2019-02-25] MEDS: Azithromycin 500 MG in 0.9 % Sodium Chloride 250 ML IVPB SCH (03:05)
[2019-02-25 03:51] LABS: Basophils % 0.6 %; Hematocrit 34.2 % (35.3-44.9); Hemoglobin 11.2 g/dL (11.5-15.4); Immature Granulocytes % 0.6 % (0-4); Lymphocytes # 1.1 K/mcL (0.6-4.6); Lymphocytes % 20.4 %; Mean Corpuscular HGB Conc 32.7 g/dL (31.6-35.5); Mean Corpuscular Hemoglobin 30.2 pg (28.0-33.3); Mean Corpuscular Volume 92.2 fL (83.0-100.0); Mean Platelet Volume 9.8 fL (9.4-12.4); Monocytes # 0.5 K/mcL (0.0-1.3); Monocytes % 8.3 %; Neutrophils # 3.8 K/mcL (1.6-8.9); Platelet Count 171 K/mcL (140-400); Red Blood Count 3.71 M/mcL (3.82-4.97); Red Cell Distribution Width 13.6 % (11.5-14.5); Segmented Neutrophils % 70.1 %; White Blood Count 5.4 K/mcL (4.3-11.1)
[2019-02-25 04:11] LABS: BUN/Creatinine Ratio 10 (6-26); Blood Urea Nitrogen 8 mg/dL (6-20); Calcium 8.5 mg/dL (8.6-10.3); Carbon Dioxide 24 mEq/L (23-29); Chloride 103 mEq/L (98-107); Glucose 183 mg/dL (70-105); Osmolality,Calculated 287 (280-300); Potassium 3.4 mEq/L (3.5-5.1); Sodium 137 mEq/L (136-145); eGFR For African Americans > 60 (> 60); eGFR For Non-African Americans > 60 (> 60)
[2019-02-25] MEDS: Acetaminophen 325 MG TABLET PO PRN ×3 (04:11→20:58)
[2019-02-25] MEDS: Piperacillin/Tazobactam 3.375 GM in 0.9 % Sodium Chloride Mini Bag 100 ML IVPB SCH ×3 (04:11→18:14)
[2019-02-25 05:47] LABS: ABG Base Excess 0 mEq/L (-2 to 3); ABG HCO3 25 mEq/L (21-27); ABG Oxygen Saturation 91 % (95-98); ABG PCO2 40 mmHg (35-45); ABG PO2 62 mmHg (85-104); ABG TCO2 26 mEq/L (20-26)
[2019-02-25] MEDS: Famotidine 20 MG TABLET PO SCH (08:22)
[2019-02-25] MEDS: Aspirin Enteric Coated 81 MG Tablet PO SCH (08:22)
[2019-02-25] MEDS ORDERED: Aminoglycoside Consult 1 EACH MC ONE (08:36)
[2019-02-25] MEDS ORDERED: NON-FORMULARY MEDICATION 1 EACH EACH (Pantoprazole Sodium [Protonix] 40 MG) PO SCH (09:00)
[2019-02-25] MEDS: Insulin LISPRO 300 UNITS/3 ML VIAL SQ SCH ×3 (09:01→17:05)
[2019-02-25] MEDS: Insulin DETEMIR 100 UNIT/ML X5UNITS SQ SCH ×2 (09:01→20:44)
[2019-02-25] MEDS ORDERED: Aspirin Enteric Coated 81 MG Tablet PO ONE (09:04)
[2019-02-25] MEDS: Fluticasone Propionate Nasal 50 MCG/SPRAY BOTTLE NS SCH (10:28)
[2019-02-25] MEDS ORDERED: Albuterol 2.5 MG/3 ML NEBULIZER ONE (11:02)
[2019-02-25] MEDS: *HR* Heparin 5,000 UNIT/ML VIAL SQ SCH ×2 (13:50→20:48)
[2019-02-25] MEDS: Benzonatate 100 MG CAPSULE PO PRN ×3 (13:50→20:40)
[2019-02-25] MEDS: Gabapentin 300 MG CAPSULE PO SCH (20:39)
[2019-02-25] MEDS ORDERED: *HR* LORazepam 2 MG/ML VIAL IVP ONE (22:21)
[2019-02-25] MEDS: Levalbuterol Neb 1.25 MG/3 ML IH SCH (23:23)
[2019-02-26] MEDS ORDERED: Acetaminophen IV 1,000 MG/100 ML INFUS..BTL IVPB ONE ×2 (00:56→12:35)
[2019-02-26 01:48] LABS: Basophils % 0.3 %; Eosinophils % 0.2 %; Hematocrit 33.9 % (35.3-44.9); Hemoglobin 11.2 g/dL (11.5-15.4); Immature Granulocytes % 0.3 % (0-4); Lymphocytes # 1.2 K/mcL (0.6-4.6); Lymphocytes % 18.6 %; Mean Corpuscular Hemoglobin 29.8 pg (28.0-33.3); Mean Corpuscular Volume 90.2 fL (83.0-100.0); Mean Platelet Volume 10.2 fL (9.4-12.4); Monocytes # 0.3 K/mcL (0.0-1.3); Monocytes % 5.5 %; Neutrophils # 4.7 K/mcL (1.6-8.9); Platelet Count 179 K/mcL (140-400); Red Blood Count 3.76 M/mcL (3.82-4.97); Red Cell Distribution Width 13.7 % (11.5-14.5); Segmented Neutrophils % 75.1 %; White Blood Count 6.2 K/mcL (4.3-11.1)
[2019-02-26 02:08] LABS: BUN/Creatinine Ratio 7 (6-26); Blood Urea Nitrogen 7 mg/dL (6-20); Calcium 8.4 mg/dL (8.6-10.3); Carbon Dioxide 25 mEq/L (23-29); Chloride 105 mEq/L (98-107); Glucose 141 mg/dL (70-105); Magnesium 1.5 mg/dL (1.6-2.6); Osmolality,Calculated 286 (280-300); Potassium 3.4 mEq/L (3.5-5.1); Sodium 138 mEq/L (136-145); eGFR For African Americans > 60 (> 60); eGFR For Non-African Americans > 60 (> 60)
[2019-02-26] MEDS: Azithromycin 500 MG in 0.9 % Sodium Chloride 250 ML IVPB SCH (03:17)
[2019-02-26] MEDS: Piperacillin/Tazobactam 3.375 GM in 0.9 % Sodium Chloride Mini Bag 100 ML IVPB SCH ×3 (03:17→18:10)
[2019-02-26] MEDS: Levalbuterol Neb 1.25 MG/3 ML IH SCH ×5 (03:46→20:35)
[2019-02-26] MEDS: *HR* Heparin 5,000 UNIT/ML VIAL SQ SCH ×3 (05:27→21:11)
[2019-02-26] MEDS ORDERED: Isovue-370 500 ML BOTTLE IVP ONE (07:56)
[2019-02-26] MEDS: Insulin LISPRO 300 UNITS/3 ML VIAL SQ SCH ×3 (09:32→18:09)
[2019-02-26] MEDS: carvediloL 6.25 MG TABLET PO SCH (09:32)
[2019-02-26] MEDS: Famotidine 20 MG TABLET PO SCH (09:32)
[2019-02-26] MEDS: Fluticasone Propionate Nasal 50 MCG/SPRAY BOTTLE NS SCH (09:33)
[2019-02-26] MEDS: Insulin DETEMIR 100 UNIT/ML X5UNITS SQ SCH ×2 (09:33→21:10)
[2019-02-26] MEDS: Aspirin Enteric Coated 81 MG Tablet PO SCH (09:33)
[2019-02-26 10:33] LABS: ABG Base Excess 3 mEq/L (-2 to 3); ABG HCO3 27 mEq/L (21-27); ABG Oxygen Saturation 94 % (95-98); ABG PCO2 38 mmHg (35-45); ABG PH 7.46 pH Units (7.32-7.45); ABG PO2 66 mmHg (85-104); ABG TCO2 28 mEq/L (20-26)
[2019-02-26 12:20] LABS: ABG Base Excess 2 mEq/L (-2 to 3); ABG HCO3 26 mEq/L (21-27); ABG Oxygen Saturation 91 % (95-98); ABG PCO2 38 mmHg (35-45); ABG PH 7.45 pH Units (7.32-7.45); ABG PO2 59 mmHg (85-104); ABG TCO2 27 mEq/L (20-26)
[2019-02-26] MEDS ORDERED: Acetaminophen 650 MG RECTAL SUPP RC PRN (12:21)
[2019-02-26] MEDS ORDERED: Potassium Chloride 40 MEQ, Lidocaine 1% 2 ML in 0.9 % Sodium Chloride 500 ML IVPB ONE (12:26)
[2019-02-26] MEDS ORDERED: Vancomycin 1,750 MG in 0.9 % Sodium Chloride 250 ML IVPB SCH (13:00)
[2019-02-26] MEDS: MethylPREDNISolone 40 MG/ML VIAL IVP SCH ×3 (13:09→23:40)
[2019-02-26 15:54] LABS: ABG Base Excess 2 mEq/L (-2 to 3); ABG HCO3 27 mEq/L (21-27); ABG Oxygen Saturation 92 % (95-98); ABG PCO2 43 mmHg (35-45); ABG PO2 63 mmHg (85-104); ABG TCO2 28 mEq/L (20-26)
[2019-02-27] MEDS: Levalbuterol Neb 1.25 MG/3 ML IH SCH ×7 (00:05→23:47)
[2019-02-27] MEDS: Insulin LISPRO 300 UNITS/3 ML VIAL SQ SCH ×4 (01:23→17:05)
[2019-02-27] MEDS: Azithromycin 500 MG in 0.9 % Sodium Chloride 250 ML IVPB SCH (03:41)
[2019-02-27] MEDS: Piperacillin/Tazobactam 3.375 GM in 0.9 % Sodium Chloride Mini Bag 100 ML IVPB SCH ×3 (03:42→18:04)
[2019-02-27] MEDS: *HR* Heparin 5,000 UNIT/ML VIAL SQ SCH ×3 (05:30→20:00)
[2019-02-27] MEDS: MethylPREDNISolone 40 MG/ML VIAL IVP SCH ×4 (05:30→23:13)
[2019-02-27] MEDS: Fluticasone Propionate Nasal 50 MCG/SPRAY BOTTLE NS SCH (08:08)
[2019-02-27] MEDS: Pantoprazole 40 MG VIAL IVP SCH (08:21)
[2019-02-27 08:23] LABS: Basophils % 0.2 %; Hematocrit 31.8 % (35.3-44.9); Hemoglobin 10.6 g/dL (11.5-15.4); Immature Granulocytes % 0.5 % (0-4); Lymphocytes # 0.5 K/mcL (0.6-4.6); Lymphocytes % 8.9 %; Mean Corpuscular HGB Conc 33.3 g/dL (31.6-35.5); Mean Corpuscular Volume 90.1 fL (83.0-100.0); Mean Platelet Volume 9.8 fL (9.4-12.4); Monocytes # 0.2 K/mcL (0.0-1.3); Monocytes % 3.2 %; Neutrophils # 4.9 K/mcL (1.6-8.9); Platelet Count 173 K/mcL (140-400); Red Blood Count 3.53 M/mcL (3.82-4.97); Red Cell Distribution Width 13.4 % (11.5-14.5); Segmented Neutrophils % 87.2 %; White Blood Count 5.6 K/mcL (4.3-11.1)
[2019-02-27] MEDS: Insulin DETEMIR 100 UNIT/ML X5UNITS SQ SCH ×2 (08:47→20:00)
[2019-02-27 08:50] LABS: BUN/Creatinine Ratio 15 (6-26); Blood Urea Nitrogen 11 mg/dL (6-20); Carbon Dioxide 23 mEq/L (23-29); Chloride 103 mEq/L (98-107); Glucose 262 mg/dL (70-105); Osmolality,Calculated 298 (280-300); Potassium 3.9 mEq/L (3.5-5.1); Sodium 140 mEq/L (136-145); eGFR For African Americans > 60 (> 60); eGFR For Non-African Americans > 60 (> 60)
[2019-02-27] MEDS ORDERED: Furosemide 20 MG/2 ML VIAL IVP ONE (08:58)
[2019-02-27] MEDS: Aspirin Enteric Coated 81 MG Tablet PO SCH (11:44)
[2019-02-27 14:00] LABS: Magnesium 1.9 mg/dL (1.6-2.6)
[2019-02-27] MEDS: carvediloL 6.25 MG TABLET PO SCH ×3 (14:20→17:00)
[2019-02-28] MEDS: Insulin LISPRO 300 UNITS/3 ML VIAL SQ SCH ×4 (00:14→17:10)
[2019-02-28] MEDS: Azithromycin 500 MG in 0.9 % Sodium Chloride 250 ML IVPB SCH (03:22)
[2019-02-28] MEDS: Piperacillin/Tazobactam 3.375 GM in 0.9 % Sodium Chloride Mini Bag 100 ML IVPB SCH ×3 (03:22→21:18)
[2019-02-28] MEDS: Levalbuterol Neb 1.25 MG/3 ML IH SCH ×5 (03:46→20:20)
[2019-02-28 04:02] LABS: Basophils % 0.1 %; Hematocrit 31.9 % (35.3-44.9); Hemoglobin 10.4 g/dL (11.5-15.4); Immature Granulocytes % 0.6 % (0-4); Lymphocytes # 0.5 K/mcL (0.6-4.6); Lymphocytes % 7.5 %; Mean Corpuscular HGB Conc 32.6 g/dL (31.6-35.5); Mean Corpuscular Hemoglobin 30.1 pg (28.0-33.3); Mean Corpuscular Volume 92.2 fL (83.0-100.0); Mean Platelet Volume 9.7 fL (9.4-12.4); Monocytes # 0.3 K/mcL (0.0-1.3); Neutrophils # 6.3 K/mcL (1.6-8.9); Platelet Count 191 K/mcL (140-400); Red Blood Count 3.46 M/mcL (3.82-4.97); Red Cell Distribution Width 13.2 % (11.5-14.5); Segmented Neutrophils % 87.8 %; White Blood Count 7.2 K/mcL (4.3-11.1)
[2019-02-28 04:22] LABS: BUN/Creatinine Ratio 22 (6-26); Blood Urea Nitrogen 16 mg/dL (6-20); Calcium 8.1 mg/dL (8.6-10.3); Carbon Dioxide 25 mEq/L (23-29); Chloride 105 mEq/L (98-107); Glucose 274 mg/dL (70-105); Magnesium 1.9 mg/dL (1.6-2.6); Osmolality,Calculated 305 (280-300); Potassium 3.7 mEq/L (3.5-5.1); Sodium 142 mEq/L (136-145); eGFR For African Americans > 60 (> 60); eGFR For Non-African Americans > 60 (> 60)
[2019-02-28] MEDS: carvediloL 6.25 MG TABLET PO SCH ×3 (06:12→16:34)
[2019-02-28] MEDS: *HR* Heparin 5,000 UNIT/ML VIAL SQ SCH ×3 (06:16→21:18)
[2019-02-28] MEDS: MethylPREDNISolone 40 MG/ML VIAL IVP SCH ×3 (06:17→18:09)
[2019-02-28] MEDS: Aspirin Enteric Coated 81 MG Tablet PO SCH (07:19)
[2019-02-28] MEDS: Pantoprazole 40 MG VIAL IVP SCH (07:19)
[2019-02-28] MEDS: Insulin DETEMIR 100 UNIT/ML X5UNITS SQ SCH ×2 (07:20→21:18)
[2019-02-28] MEDS: Fluticasone Propionate Nasal 50 MCG/SPRAY BOTTLE NS SCH (07:25)
[2019-02-28] MEDS ORDERED: D5% in Water 1,000 ML IVC PRN (08:22)
[2019-02-28] MEDS ORDERED: *HR* Dextrose 50 % in Water (Syg) 50 ML SYRINGE IVP PRN (08:22)
[2019-02-28] MEDS ORDERED: Dextrose Gel 15 GM/37.5 ML TUBE PO PRN ×2 (08:22)
[2019-02-28] MEDS ORDERED: Aminoglycoside Consult 1 EACH MC ONE (08:36)
[2019-02-28] MEDS: Furosemide 20 MG/2 ML VIAL IVP SCH ×2 (11:27→21:18)
[2019-02-28] MEDS ORDERED: Potassium Phosphate 44 MEQ in 0.9 % Sodium Chloride 250 ML IVPB PRN (19:34)
[2019-02-28] MEDS ORDERED: Calcium Gluconate 1gm/50mL 1 GM/50 ML BAG IVPB PRN (19:34)
[2019-02-28 20:39] LABS: BUN/Creatinine Ratio 19 (6-26); Blood Urea Nitrogen 21 mg/dL (6-20); Calcium 8.1 mg/dL (8.6-10.3); Carbon Dioxide 26 mEq/L (23-29); Chloride 105 mEq/L (98-107); Glucose 353 mg/dL (70-105); Magnesium 1.8 mg/dL (1.6-2.6); Osmolality,Calculated 305 (280-300); Potassium 3.7 mEq/L (3.5-5.1); Sodium 139 mEq/L (136-145); eGFR For African Americans > 60 (> 60); eGFR For Non-African Americans 52 (> 60)
[2019-02-28] MEDS ORDERED: Insulin LISPRO 300 UNITS/3 ML VIAL SQ SCH (21:00)
[2019-02-28] MEDS ORDERED: Acetaminophen 325 MG TABLET PO ONE (22:04)
[2019-03-01] MEDS: Piperacillin/Tazobactam 3.375 GM in 0.9 % Sodium Chloride Mini Bag 100 ML IVPB SCH ×3 (03:18→18:57)
[2019-03-01] MEDS: Azithromycin 500 MG in 0.9 % Sodium Chloride 250 ML IVPB SCH (03:18)
[2019-03-01] MEDS: Levalbuterol Neb 1.25 MG/3 ML IH SCH ×7 (03:42→23:31)
[2019-03-01 03:54] LABS: Basophils % 0.1 %; Hematocrit 31.7 % (35.3-44.9); Hemoglobin 10.5 g/dL (11.5-15.4); Immature Granulocytes % 1.8 % (0-4); Lymphocytes # 0.7 K/mcL (0.6-4.6); Lymphocytes % 10.5 %; Mean Corpuscular HGB Conc 33.1 g/dL (31.6-35.5); Mean Corpuscular Hemoglobin 29.7 pg (28.0-33.3); Mean Corpuscular Volume 89.8 fL (83.0-100.0); Monocytes # 0.4 K/mcL (0.0-1.3); Monocytes % 5.1 %; Neutrophils # 5.6 K/mcL (1.6-8.9); Platelet Count 227 K/mcL (140-400); Red Blood Count 3.53 M/mcL (3.82-4.97); Red Cell Distribution Width 13.1 % (11.5-14.5); Segmented Neutrophils % 82.5 %; White Blood Count 6.8 K/mcL (4.3-11.1)
[2019-03-01 04:13] LABS: BUN/Creatinine Ratio 22 (6-26); Blood Urea Nitrogen 22 mg/dL (6-20); Carbon Dioxide 27 mEq/L (23-29); Chloride 105 mEq/L (98-107); Glucose 338 mg/dL (70-105); Osmolality,Calculated 305 (280-300); Potassium 3.6 mEq/L (3.5-5.1); Sodium 139 mEq/L (136-145); eGFR For African Americans > 60 (> 60); eGFR For Non-African Americans 56 (> 60)
[2019-03-01 04:18] LABS: Platelet Estimate Normal (Normal)
[2019-03-01 04:19] LABS: Reactive Lymphocytes Present (Not Present)
[2019-03-01 05:11] LABS: Vancomycin,Trough 19 mcg/mL (5-10)
[2019-03-01] MEDS: *HR* Heparin 5,000 UNIT/ML VIAL SQ SCH ×3 (06:06→21:17)
[2019-03-01] MEDS: MethylPREDNISolone 40 MG/ML VIAL IVP SCH ×2 (06:06→18:57)
[2019-03-01] MEDS: Insulin LISPRO 300 UNITS/3 ML VIAL SQ SCH ×3 (08:02→17:06)
[2019-03-01] MEDS: Aspirin Enteric Coated 81 MG Tablet PO SCH (08:05)
[2019-03-01] MEDS: Insulin DETEMIR 100 UNIT/ML X5UNITS SQ SCH ×2 (08:08→21:17)
[2019-03-01] MEDS: Pantoprazole 40 MG VIAL IVP SCH (08:08)
[2019-03-01] MEDS: Furosemide 20 MG/2 ML VIAL IVP SCH (08:09)
[2019-03-01 08:54] LABS: VBG Ionized Calcium 1.12 mmol/L (1.15-1.35)
[2019-03-01] MEDS ORDERED: Insulin DETEMIR 100 UNIT/ML X5UNITS SQ SCH ×2 (09:00→21:00)
[2019-03-01 09:11] LABS: Magnesium 1.9 mg/dL (1.6-2.6); Phosphorous 2.9 mg/dL (2.7-4.5)
[2019-03-01] MEDS: carvediloL 6.25 MG TABLET PO SCH ×2 (11:21→16:28)
[2019-03-01] MEDS ORDERED: Furosemide 40 MG/4 ML VIAL IVP SCH (11:30)
[2019-03-01] MEDS ORDERED: Potassium Chloride Elixir 20 MEQ/15 ML UDC PO SCH (11:30)
[2019-03-01] MEDS: Fluticasone Propionate Nasal 50 MCG/SPRAY BOTTLE NS SCH (12:40)
[2019-03-01 18:56] LABS: Calcium 8.4 mg/dL (8.6-10.3); Potassium 3.7 mEq/L (3.5-5.1)
[2019-03-01] MEDS ORDERED: Naloxone 0.4 MG/ML INJ IVP PRN (19:05)
[2019-03-01] MEDS ORDERED: *HR* Dextrose 50 % in Water (Syg) 50 ML SYRINGE IVP PRN (19:05)
[2019-03-01] MEDS ORDERED: Ondansetron 4 MG/2 ML VIAL IVP PRN (19:05)
[2019-03-01] MEDS ORDERED: Dextrose Gel 15 GM/37.5 ML TUBE PO PRN ×2 (19:05)
[2019-03-01] MEDS ORDERED: D5% in Water 1,000 ML IVC PRN (19:05)
[2019-03-01] MEDS ORDERED: MOM Conc 10 ML UD.LIQ PO PRN (19:05)
[2019-03-01] MEDS ORDERED: Levalbuterol Neb 1.25 MG/3 ML ONE (19:27)
[2019-03-01] MEDS ORDERED: Insulin LISPRO 300 UNITS/3 ML VIAL SQ SCH (21:00)
[2019-03-01] MEDS ORDERED: Gabapentin 300 MG CAPSULE PO SCH (21:00)
[2019-03-01] MEDS: Furosemide 40 MG/4 ML VIAL IVP SCH (21:17)
[2019-03-02] MEDS ORDERED: Azithromycin 500 MG in 0.9 % Sodium Chloride 250 ML IVPB SCH (03:00)
[2019-03-02] MEDS ORDERED: Piperacillin/Tazobactam 3.375 GM in 0.9 % Sodium Chloride Mini Bag 100 ML IVPB SCH (03:00)
[2019-03-02] MEDS: Levalbuterol Neb 1.25 MG/3 ML IH SCH ×6 (03:39→23:32)
[2019-03-02 04:04] LABS: Basophils % 0.3 %; Hematocrit 32.5 % (35.3-44.9); Immature Granulocytes % 3.9 % (0-4); Immature Platelets 2.7 % (1.1-6.1); Lymphocytes # 1.1 K/mcL (0.6-4.6); Lymphocytes % 13.9 %; Mean Corpuscular HGB Conc 33.8 g/dL (31.6-35.5); Mean Corpuscular Hemoglobin 29.5 pg (28.0-33.3); Mean Corpuscular Volume 87.1 fL (83.0-100.0); Mean Platelet Volume 9.8 fL (9.4-12.4); Monocytes # 0.4 K/mcL (0.0-1.3); Monocytes % 5.7 %; Neutrophils # 5.8 K/mcL (1.6-8.9); Nucleated Red Blood Cells 0.4 /100 WBC (0); Platelet Count 247 K/mcL (140-400); Red Blood Count 3.73 M/mcL (3.82-4.97); Red Cell Distribution Width 12.8 % (11.5-14.5); Segmented Neutrophils % 76.2 %; White Blood Count 7.6 K/mcL (4.3-11.1)
[2019-03-02 04:22] LABS: BUN/Creatinine Ratio 23 (6-26); Blood Urea Nitrogen 23 mg/dL (6-20); Calcium 8.3 mg/dL (8.6-10.3); Carbon Dioxide 32 mEq/L (23-29); Chloride 99 mEq/L (98-107); Glucose 326 mg/dL (70-105); Magnesium 1.8 mg/dL (1.6-2.6); Osmolality,Calculated 308 (280-300); Phosphorous 3.6 mg/dL (2.7-4.5); Potassium 3.7 mEq/L (3.5-5.1); Sodium 141 mEq/L (136-145); eGFR For African Americans > 60 (> 60); eGFR For Non-African Americans 57 (> 60)
[2019-03-02 04:25] LABS: Reactive Lymphocytes Present (Not Present)
[2019-03-02 04:26] LABS: Platelet Estimate Normal (Normal)
[2019-03-02] MEDS ORDERED: MethylPREDNISolone 40 MG/ML VIAL IVP SCH (06:00)
[2019-03-02] MEDS: *HR* Heparin 5,000 UNIT/ML VIAL SQ SCH ×3 (06:05→20:03)
[2019-03-02] MEDS ORDERED: Famotidine 20 MG TABLET PO SCH (07:30)
[2019-03-02] MEDS ORDERED: carvediloL 6.25 MG TABLET PO SCH (08:00)
[2019-03-02] MEDS: Furosemide 40 MG/4 ML VIAL IVP SCH (08:29)
[2019-03-02] MEDS: Insulin LISPRO 300 UNITS/3 ML VIAL SQ SCH ×4 (08:31→22:02)
[2019-03-02] MEDS: Insulin DETEMIR 100 UNIT/ML X5UNITS SQ SCH (08:35)
[2019-03-02] MEDS ORDERED: Aspirin Enteric Coated 81 MG Tablet PO SCH (09:00)
[2019-03-02] MEDS ORDERED: Fluticasone Propionate Nasal 50 MCG/SPRAY BOTTLE NS SCH (09:00)
[2019-03-02] MEDS ORDERED: Ondansetron ODT 4 MG TAB.RAPDIS SL PRN ×2 (09:05→12:12)
[2019-03-02] MEDS ORDERED: Insulin DETEMIR 100 UNIT/ML X5UNITS SQ ONE (11:32)
[2019-03-02] MEDS ORDERED: *HR* Dextrose 50 % in Water (Syg) 50 ML SYRINGE IVP PRN (12:12)
[2019-03-02] MEDS ORDERED: Naloxone 0.4 MG/ML INJ IVP PRN (12:12)
[2019-03-02] MEDS ORDERED: MOM Conc 10 ML UD.LIQ PO PRN (12:12)
[2019-03-02] MEDS ORDERED: D5% in Water 1,000 ML IVC PRN (12:12)
[2019-03-02] MEDS ORDERED: Dextrose Gel 15 GM/37.5 ML TUBE PO PRN ×2 (12:12)
[2019-03-02] MEDS: carvediloL 6.25 MG TABLET PO SCH (15:13)
[2019-03-02] MEDS: Furosemide 40 MG TABLET PO SCH (15:14)
[2019-03-02] MEDS ORDERED: predniSONE 20 MG TABLET PO SCH ×2 (17:00)
[2019-03-02] MEDS ORDERED: Furosemide 40 MG TABLET PO SCH (17:00)
[2019-03-02] MEDS: Cefuroxime PO 500 MG TABLET PO SCH (17:07)
[2019-03-02] MEDS ORDERED: Cefuroxime PO 500 MG TABLET PO SCH ×2 (18:00)
[2019-03-02] MEDS: Gabapentin 300 MG CAPSULE PO SCH (20:01)
[2019-03-02] MEDS ORDERED: Insulin DETEMIR 100 UNIT/ML X5UNITS SQ SCH ×2 (21:00)
[2019-03-03] MEDS: Levalbuterol Neb 1.25 MG/3 ML IH SCH ×5 (03:42→19:46)
[2019-03-03] MEDS: Cefuroxime PO 500 MG TABLET PO SCH ×2 (05:17→17:36)
[2019-03-03] MEDS: *HR* Heparin 5,000 UNIT/ML VIAL SQ SCH ×3 (05:17→21:13)
[2019-03-03] MEDS ORDERED: Azithromycin 250 MG TABLET PO SCH (09:00)
[2019-03-03] MEDS: predniSONE 20 MG TABLET PO SCH (10:11)
[2019-03-03] MEDS: Furosemide 40 MG TABLET PO SCH ×2 (10:12→17:37)
[2019-03-03] MEDS: Famotidine 20 MG TABLET PO SCH (10:12)
[2019-03-03] MEDS: carvediloL 6.25 MG TABLET PO SCH ×2 (10:12→17:37)
[2019-03-03] MEDS: Aspirin Enteric Coated 81 MG Tablet PO SCH (10:13)
[2019-03-03] MEDS: Insulin DETEMIR 100 UNIT/ML X5UNITS SQ SCH ×2 (10:13→21:14)
[2019-03-03] MEDS: Insulin LISPRO 300 UNITS/3 ML VIAL SQ SCH ×7 (10:14→21:12)
[2019-03-03] MEDS: Fluticasone Propionate Nasal 50 MCG/SPRAY BOTTLE NS SCH (10:17)
[2019-03-03] MEDS: Gabapentin 300 MG CAPSULE PO SCH (21:14)
[2019-03-04] MEDS: Levalbuterol Neb 1.25 MG/3 ML IH SCH ×7 (00:05→23:58)
[2019-03-04 04:45] LABS: Hematocrit 34.5 % (35.3-44.9); Hemoglobin 11.2 g/dL (11.5-15.4); Mean Corpuscular HGB Conc 32.5 g/dL (31.6-35.5); Mean Corpuscular Hemoglobin 29.4 pg (28.0-33.3); Mean Corpuscular Volume 90.6 fL (83.0-100.0); Mean Platelet Volume 9.6 fL (9.4-12.4); Platelet Count 311 K/mcL (140-400); Red Blood Count 3.81 M/mcL (3.82-4.97); Red Cell Distribution Width 12.7 % (11.5-14.5); White Blood Count 7.5 K/mcL (4.3-11.1)
[2019-03-04 05:03] LABS: BUN/Creatinine Ratio 24 (6-26); Blood Urea Nitrogen 21 mg/dL (6-20); Calcium 8.7 mg/dL (8.6-10.3); Carbon Dioxide 34 mEq/L (23-29); Chloride 98 mEq/L (98-107); Glucose 215 mg/dL (70-105); Magnesium 1.9 mg/dL (1.6-2.6); Osmolality,Calculated 301 (280-300); Potassium 3.5 mEq/L (3.5-5.1); Sodium 141 mEq/L (136-145); eGFR For African Americans > 60 (> 60); eGFR For Non-African Americans > 60 (> 60)
[2019-03-04] MEDS: Cefuroxime PO 500 MG TABLET PO SCH ×2 (06:15→16:53)
[2019-03-04] MEDS: *HR* Heparin 5,000 UNIT/ML VIAL SQ SCH ×3 (06:15→20:47)
[2019-03-04] MEDS: Aspirin Enteric Coated 81 MG Tablet PO SCH (08:19)
[2019-03-04] MEDS: carvediloL 6.25 MG TABLET PO SCH ×2 (08:20→16:53)
[2019-03-04] MEDS: Insulin DETEMIR 100 UNIT/ML X5UNITS SQ SCH ×2 (08:22→20:47)
[2019-03-04] MEDS: predniSONE 20 MG TABLET PO SCH (08:22)
[2019-03-04] MEDS: Furosemide 40 MG TABLET PO SCH ×2 (08:22→16:53)
[2019-03-04] MEDS: Famotidine 20 MG TABLET PO SCH (08:22)
[2019-03-04] MEDS: Insulin LISPRO 300 UNITS/3 ML VIAL SQ SCH ×7 (08:27→20:47)
[2019-03-04] MEDS: Fluticasone Propionate Nasal 50 MCG/SPRAY BOTTLE NS SCH (08:27)
[2019-03-04] MEDS: Gabapentin 300 MG CAPSULE PO SCH (20:45)
[2019-03-05] MEDS: Levalbuterol Neb 1.25 MG/3 ML IH SCH ×6 (04:23→23:38)
[2019-03-05] MEDS: *HR* Heparin 5,000 UNIT/ML VIAL SQ SCH ×3 (04:51→21:22)
[2019-03-05 05:32] LABS: Basophils % 0.4 %; Eosinophils % 0.5 %; Hematocrit 36.1 % (35.3-44.9); Hemoglobin 11.6 g/dL (11.5-15.4); Immature Granulocytes % 4.8 % (0-4); Lymphocytes # 1.9 K/mcL (0.6-4.6); Lymphocytes % 22.9 %; Mean Corpuscular HGB Conc 32.1 g/dL (31.6-35.5); Mean Corpuscular Hemoglobin 29.5 pg (28.0-33.3); Mean Corpuscular Volume 91.9 fL (83.0-100.0); Mean Platelet Volume 9.4 fL (9.4-12.4); Monocytes # 0.7 K/mcL (0.0-1.3); Monocytes % 8.1 %; Neutrophils # 5.3 K/mcL (1.6-8.9); Platelet Count 311 K/mcL (140-400); Red Blood Count 3.93 M/mcL (3.82-4.97); Red Cell Distribution Width 12.9 % (11.5-14.5); Segmented Neutrophils % 63.3 %; White Blood Count 8.4 K/mcL (4.3-11.1)
[2019-03-05 05:39] LABS: BUN/Creatinine Ratio 21 (6-26); Blood Urea Nitrogen 19 mg/dL (6-20); Calcium 9.1 mg/dL (8.6-10.3); Carbon Dioxide 37 mEq/L (23-29); Chloride 97 mEq/L (98-107); Glucose 142 mg/dL (70-105); Osmolality,Calculated 307 (280-300); Potassium 3.7 mEq/L (3.5-5.1); Sodium 146 mEq/L (136-145); eGFR For African Americans > 60 (> 60); eGFR For Non-African Americans > 60 (> 60)
[2019-03-05] MEDS: Insulin LISPRO 300 UNITS/3 ML VIAL SQ SCH ×7 (07:44→21:22)
[2019-03-05] MEDS: Famotidine 20 MG TABLET PO SCH (07:45)
[2019-03-05] MEDS: carvediloL 6.25 MG TABLET PO SCH ×2 (07:46→17:42)
[2019-03-05] MEDS: Furosemide 40 MG TABLET PO SCH ×2 (07:47→17:42)
[2019-03-05] MEDS: predniSONE 20 MG TABLET PO SCH (07:47)
[2019-03-05] MEDS: Aspirin Enteric Coated 81 MG Tablet PO SCH (07:47)
[2019-03-05] MEDS: Fluticasone Propionate Nasal 50 MCG/SPRAY BOTTLE NS SCH (07:49)
[2019-03-05] MEDS: Insulin DETEMIR 100 UNIT/ML X5UNITS SQ SCH ×2 (08:08→21:21)
[2019-03-05] MEDS: Gabapentin 300 MG CAPSULE PO SCH (21:21)
[2019-03-06] MEDS: Levalbuterol Neb 1.25 MG/3 ML IH SCH ×5 (03:45→20:29)
[2019-03-06] MEDS: *HR* Heparin 5,000 UNIT/ML VIAL SQ SCH ×3 (05:24→21:05)
[2019-03-06 05:40] LABS: Hematocrit 35.8 % (35.3-44.9); Mean Corpuscular HGB Conc 33.5 g/dL (31.6-35.5); Mean Corpuscular Hemoglobin 29.9 pg (28.0-33.3); Mean Corpuscular Volume 89.1 fL (83.0-100.0); Mean Platelet Volume 9.2 fL (9.4-12.4); Nucleated Red Blood Cells 0.2 /100 WBC (0); Platelet Count 326 K/mcL (140-400); Red Blood Count 4.02 M/mcL (3.82-4.97); Red Cell Distribution Width 13.1 % (11.5-14.5)
[2019-03-06 06:10] LABS: BUN/Creatinine Ratio 23 (6-26); Blood Urea Nitrogen 25 mg/dL (6-20); Calcium 9.2 mg/dL (8.6-10.3); Carbon Dioxide 35 mEq/L (23-29); Chloride 96 mEq/L (98-107); Glucose 182 mg/dL (70-105); Osmolality,Calculated 305 (280-300); Potassium 3.3 mEq/L (3.5-5.1); Sodium 143 mEq/L (136-145); eGFR For African Americans > 60 (> 60); eGFR For Non-African Americans 52 (> 60)
[2019-03-06 06:26] LABS: Lymphocytes # 2.9 K/mcL (0.6-4.6); Monocytes # 0.2 K/mcL (0.0-1.3); Neutrophils # 5.9 K/mcL (1.6-8.9); Platelet Estimate Normal (Normal); Reactive Lymphocytes Present (Not Present)
[2019-03-06] MEDS: Furosemide 40 MG TABLET PO SCH ×2 (08:19→18:07)
[2019-03-06] MEDS: Famotidine 20 MG TABLET PO SCH (08:19)
[2019-03-06] MEDS: Aspirin Enteric Coated 81 MG Tablet PO SCH (08:19)
[2019-03-06] MEDS: predniSONE 20 MG TABLET PO SCH (08:20)
[2019-03-06] MEDS: carvediloL 6.25 MG TABLET PO SCH ×2 (08:20→18:06)
[2019-03-06] MEDS: Insulin LISPRO 300 UNITS/3 ML VIAL SQ SCH ×7 (08:21→20:44)
[2019-03-06] MEDS: Fluticasone Propionate Nasal 50 MCG/SPRAY BOTTLE NS SCH (08:21)
[2019-03-06] MEDS: Insulin DETEMIR 100 UNIT/ML X5UNITS SQ SCH ×2 (08:23→20:45)
[2019-03-06] MEDS: Gabapentin 300 MG CAPSULE PO SCH (21:05)
[2019-03-07] MEDS: Levalbuterol Neb 1.25 MG/3 ML IH SCH ×7 (00:06→23:33)
[2019-03-07] MEDS: Famotidine 20 MG TABLET PO SCH (05:50)
[2019-03-07] MEDS: *HR* Heparin 5,000 UNIT/ML VIAL SQ SCH ×3 (05:51→20:25)
[2019-03-07] MEDS: Insulin LISPRO 300 UNITS/3 ML VIAL SQ SCH ×7 (10:00→20:25)
[2019-03-07] MEDS: Furosemide 40 MG TABLET PO SCH ×2 (10:07→17:58)
[2019-03-07] MEDS: Aspirin Enteric Coated 81 MG Tablet PO SCH (10:07)
[2019-03-07] MEDS: carvediloL 6.25 MG TABLET PO SCH ×2 (10:07→17:58)
[2019-03-07] MEDS: Fluticasone Propionate Nasal 50 MCG/SPRAY BOTTLE NS SCH (10:07)
[2019-03-07] MEDS: predniSONE 20 MG TABLET PO SCH (10:07)
[2019-03-07] MEDS: Insulin DETEMIR 100 UNIT/ML X5UNITS SQ SCH ×2 (10:08→20:24)
[2019-03-07 10:35] LABS: Basophils % 0.3 %; Eosinophils # 0.1 K/mcL (0.0-0.6); Eosinophils % 0.8 %; Hematocrit 36.4 % (35.3-44.9); Hemoglobin 11.5 g/dL (11.5-15.4); Immature Granulocytes % 4.3 % (0-4); Lymphocytes # 2.8 K/mcL (0.6-4.6); Lymphocytes % 28.2 %; Mean Corpuscular HGB Conc 31.6 g/dL (31.6-35.5); Mean Corpuscular Hemoglobin 29.6 pg (28.0-33.3); Mean Corpuscular Volume 93.8 fL (83.0-100.0); Mean Platelet Volume 9.8 fL (9.4-12.4); Monocytes # 0.8 K/mcL (0.0-1.3); Monocytes % 7.8 %; Neutrophils # 5.8 K/mcL (1.6-8.9); Platelet Count 317 K/mcL (140-400); Red Blood Count 3.88 M/mcL (3.82-4.97); Red Cell Distribution Width 13.3 % (11.5-14.5); Segmented Neutrophils % 58.6 %; White Blood Count 9.9 K/mcL (4.3-11.1)
[2019-03-07 12:24] LABS: BUN/Creatinine Ratio 26 (6-26); Blood Urea Nitrogen 28 mg/dL (6-20); Calcium 9.4 mg/dL (8.6-10.3); Carbon Dioxide 32 mEq/L (23-29); Chloride 97 mEq/L (98-107); Glucose 229 mg/dL (70-105); Osmolality,Calculated 307 (280-300); Potassium 3.4 mEq/L (3.5-5.1); Sodium 142 mEq/L (136-145); eGFR For African Americans > 60 (> 60); eGFR For Non-African Americans 52 (> 60)
[2019-03-07] MEDS: Gabapentin 300 MG CAPSULE PO SCH (20:25)
[2019-03-08] MEDS: Levalbuterol Neb 1.25 MG/3 ML IH SCH ×4 (03:35→15:29)
[2019-03-08] MEDS: Famotidine 20 MG TABLET PO SCH (06:04)
[2019-03-08] MEDS: *HR* Heparin 5,000 UNIT/ML VIAL SQ SCH (06:04)
[2019-03-08 07:47] VITALS: BP 107/70
[2019-03-08] MEDS: Insulin LISPRO 300 UNITS/3 ML VIAL SQ SCH ×4 (08:42→11:56)
[2019-03-08] MEDS: Insulin DETEMIR 100 UNIT/ML X5UNITS SQ SCH (08:44)
[2019-03-08] MEDS: carvediloL 6.25 MG TABLET PO SCH (08:44)
[2019-03-08] MEDS: predniSONE 20 MG TABLET PO SCH (08:45)
[2019-03-08] MEDS: Aspirin Enteric Coated 81 MG Tablet PO SCH (08:45)
[2019-03-08] MEDS: Furosemide 40 MG TABLET PO SCH (08:45)
[2019-03-08] MEDS: Fluticasone Propionate Nasal 50 MCG/SPRAY BOTTLE NS SCH (08:47)
== END 2019-03-08 16:10 | disposition home or self-care (01) | DRG 871 ==
LOC: CDU 20:11 → EMEROOARM 20:11 → SUATTDRO 02-24 01:48 → CDU 02-24 03:10 → ICNU 02-26 12:55 → 2NNU 03-02 12:42 → 3BNU 03-07 02:00
PROVIDERS: ADMIT Internal Medicine; ATTEND Internal Medicine